=== PATIENT | female | born 2000 | race Caucasian/White ===

== ENCOUNTER 2021-05-17 08:51 | Outpatient (REF) | payer OTHER, SELFPAY ==
[2021-05-17 09:23] LABS: MANUAL DIFF FLAG NO
[2021-05-17 09:39] LABS: Basophils Percent Auto 0.2 % (0-2); Eosinophils Absolute Auto 0.1 X10*3/uL (0.0-0.4); Eosinophils Percent Auto 0.5 % (0-4); Hematocrit 48.1 % (37.0-47.0); Hemoglobin 16.2 g/dl (12.0-16.0); Imm Gran Abs Auto 0.09 X10*3/uL (0.00-0.03); Imm Gran Pct Auto 0.9 % (0.0-0.4); Lymphocytes Absolute Auto 1.4 X10*3/uL (1.2-4.9); Lymphocytes Percent Auto 14.4 % (20-40); Mean Corpuscular HGB Conc 33.7 g/dl (31.0-35.0); Mean Corpuscular Hemoglobin 28.9 pg (27.0-33.0); Mean Corpuscular Volume 85.9 fL (80.0-98.0); Mean Platelet Volume 9.4 fL (9.4-12.3); Monocytes Absolute Auto 0.6 X10*3/uL (0.1-1.2); Monocytes Percent Auto 5.7 % (2-11); Neutrophils Absolute Auto 7.5 x10*3/uL (2.0-8.3); Neutrophils Percent Auto 78.3 % (45-73); Platelet Count 333 X10*3/uL (160-400); Red Cell Distribution Width 12.1 % (11.0-16.0); White Blood Count 9.6 X10*3/uL (4.8-10.8)
[2021-05-17 10:07] LABS: Alanine Aminotransferase 22 U/L (0-31); Anion Gap 12 (12-20); Aspartate Amino Transferase 14 U/L (5-31); Blood Urea Nitrogen 12 mg/dL (9-16); Calcium 9.9 mg/dL (8.4-10.2); Carbon Dioxide 26 mmol/L (22-29); Chloride 104 mmol/L (96-108); Cholesterol 193 mg/dL; Estimated Glomerular Filt Rate > 60; Glucose Fasting 105 mg/dL (60-99); HDL Cholesterol 42 mg/dL; LDL Cholesterol Calculated 139 mg/dl; Potassium 4.7 mmol/L (3.3-5.1); Sodium 137 mmol/L (135-145); Triglycerides 62 mg/dL
[2021-05-17 10:17] LABS: UPreg QC Valid YES; Urine Pregnancy NEGATIVE (NEGATIVE)
[2021-05-17 10:21] LABS: TSH reflex Free T4 0.95 uIU/mL (0.32-4.0)
== END 2021-05-17 08:52 | disposition home or self-care (01) ==
LOC: HO.LAB 08:51
PROVIDERS: Absent Provider Podiatrist; PCP Internal Medicine; Visit Provider Internal Medicine
DX: Z00.01 Encounter for general adult medical examination with abnormal findings (principal); F41.8 Other specified anxiety disorders; G43.909 Migraine, unspecified, not intractable, without status migrainosus; J45.20 Mild intermittent asthma, uncomplicated; I10 Essential (primary) hypertension; Z83.49 Family history of other endocrine, nutritional and metabolic diseases; M20.11 Hallux valgus (acquired), right foot
CPT/HCPCS: 36415; 80048; 80061; 81025; 84443; 84450; 84460; 85025

== ENCOUNTER 2021-10-10 08:58 | Emergency (ER) | payer OTHER, MEDICAID, SELFPAY ==
--- NOTE | ~2021-10-10 | XR_ITS ---
EXAMINATION: XR WRIST, RIGHT CLINICAL INFORMATION: Right navicular pain status post fall. COMPARISON: None TECHNIQUE: PA, lateral, and oblique views of the right wrist. FINDINGS: The bones and soft tissues are normal. No fracture. Alignment is anatomic with normal joint spaces. No erosions or abnormal soft tissue calcifications. XR/XR wrist RT min 3V IMPRESSION: Unremarkable wrist. No evidence for scaphoid fracture.
[2021-10-10 09:07] VITALS: BP 118/70; PULSE 77; RESP 99; TEMP 35.9; O2SAT 16; BMI 21.1
--- NOTE | 2021-10-10 09:16 | ED_ITS ---
HPI - Extremity Problem General Chief complaint: Extremity Injury, Upper Stated complaint: R wrist inj Time Seen by Provider: 10/10/21 09:16 Source: patient Mode of arrival: ambulatory Limitations: no limitations History of Present Illness HPI Narrative: 21-year-old female presents with pain in her right wrist for the last week. Patient is right-handed and works at a bakery, and when she lifts heavy things, her right wrist is painful. No trauma, no repetitive movement. No numbness or tingling in her fingers. Patient has full range of motion. Patient has not tried ice or Tylenol or ibuprofen. MD Complaint: extremity pain Onset (ago): week(s) (1) Pain Consistency: constant Location: right Severity scale (1-10): 5 Quality: aching Radiation: none Relieving factors: nothing Exacerbating factors: nothing Associated symptoms: denies other symptoms Related Data Home Medications Medication Instructions Recorded Confirmed bupropion HCl 300 mg 24 hr tablet, 300 mg PO BEDTIME 02/28/21 05/21/21 extended release cholecalciferol (vitamin D3) 25 25 mcg PO DAILY 02/28/21 05/21/21 mcg (1,000 unit) capsule fluoxetine 20 mg tablet 40 mg PO QAM 02/28/21 05/21/21 propranolol 20 mg tablet 20 mg PO TID 02/28/21 05/21/21 rizatriptan 5 mg tablet See Rx Instructions PO .COMPLEX 02/28/21 05/21/21 clonazepam 1 mg tablet 1 mg PO TID PRN 05/21/21 05/21/21 Previous Rx's Medication Instructions Recorded nebulizers #1 ea 02/28/21 albuterol sulfate 90 mcg/actuation 2 puff INHALATION Q6H PRN #6.7 g 05/16/21 aerosol inhaler budesonide-formoterol HFA 160 1 puff INHALATION Q12H #10.2 g 05/21/21 mcg-4.5 mcg/actuation aerosol inhaler (Symbicort) inhalational spacing device #1 ea 05/21/21 (BreatheRite MDI Spacer) fluticasone 250 mcg-salmeterol 50 1 inh INHALATION BID #180 ea 06/05/21 mcg/dose blistr powdr for inhalation (Advair Diskus) albuterol sulfate 2.5 mg (3 mL) INHALATION QID PRN 09/12/21 #75 ml albuterol sulfate 90 mcg/actuation 2 puff INHALATION Q6H PRN #8.5 g 09/14/21 aerosol inhaler naproxen 500 mg tablet 500 mg PO BID 10 Days #20 tab 10/10/21 Allergies Allergy/AdvReac Type Severity Reaction Status Date / Time No Known Allergies Allergy Verified 05/21/21 10:47 [No Known Allergies*] Review of Systems Constitutional: Constitutional: Denies body ache(s), Denies chills, Denies fatigue, Denies fever(s), Denies headache(s), Denies malaise and Denies weakness Eyes: Eyes: Denies diplopia ENT: Denies vertigo, Denies dizziness, Denies headache(s) and Denies throat swelling Cardiovascular: Cardiovascular: Denies chest pain, Denies syncope, Denies leg edema, Denies lightheadedness, Denies Loss of Consciousness, Denies palpitations and Denies dyspnea Respiratory: Respiratory: Denies chest congestion, Denies cough and Denies dyspnea Gastrointestinal: Gastrointestinal: Denies abdominal pain, Denies hematochezia, Denies constipation, Denies diarrhea and Denies vomiting Musculoskeletal: Musculoskeletal: Denies deformity, Reports arthralgias, Denies limited range of motion, Denies numbness and Denies tingling Neurologic: Denies confusion, Denies vertigo, Denies dizziness, Denies syncope, Denies headache(s), Denies numbness, Denies tingling and Denies weakness Psychiatric: Psychiatric: Denies anxiety, Denies confusion and Denies depression Endocrine: Endocrine: Denies fatigue and Denies palpitations Allergic/Immunologic: Allergic/Immunologic: Denies throat swelling PMFSH Past Medical History Medical History ADHD (attention deficit hyperactivity disorder), inattentive type Depression with anxiety Family history of thyroid disease in mother Malrotation of intestine Migraine Mild intermittent asthma Family History Family History Maternal Aunt Bipolar 1 disorder Brother OCD (obsessive compulsive disorder) Mother Generalized anxiety disorder Hypothyroidism Social History Social History Housing: House Patient Tobacco Use Status: Never used Tobacco Advance Directives: No Advance Directives Information Provided: No Patient : No Current occupational status: employed and unemployed Physical Exam Vital Signs: Vital Signs: Last Vital Signs Temp 96.6 F L 10/10/21 09:07 Pulse 77 10/10/21 09:07 Resp 99 H 10/10/21 09:07 BP 118/70 10/10/21 09:07 Pulse Ox 16 L 10/10/21 09:07 BMI result Body Mass Index 21.1 Const: General: No confusion Nutritional Appearance: well nourished Orientation/consciousness: No confusion Limitations: no limitations Eyes: Conjunctivae: conjunctivae normal Pupils: Equal, round and reactive pupils present EOM: EOMs intact bilaterally Neck: Neck: Yes full ROM, Yes no lymphadenopathy and Yes supple Resp: Effort & Inspection: normal respiratory effort and able to speak in complete sentences Auscultation: clear to auscultation bilaterally, no crackles, no rales, no rhonchi and no wheezes Cardio: Rate: regular rate Rhythm: regular rhythm Heart sounds: S1 normal heart sound present and S2 normal heart sound present GI: Inspection: Yes normal to inspection Palpation (GI): Soft to palpation, nontender, no guarding and not rigid Percussion: Yes normal to percussion Auscultation: normal bowel sounds Skin: General skin exam: no rashes or lesions noted Neuro: General: No confusion Cranial nerves: Yes Equal, round and reactive pupils present Extrem: Right upper extremity: normal to inspection, full ROM, normal capillary refill, no joint enlargement and wrist Details: tenderness Location: of the distal radius, of the anatomic snuffbox and of the dorsal wrist, normal vascular exam, radial pulse present, normal Roldan's test and Tinel's negative; Negative for no swelling, ROM normal, no unusual warmth, no abrasions, no lacerations and no crepitus; No no edema Psych: Appearance: grossly normal Affect: normal affect Attitude: cooperative Thought process: Normal thought process present Course Course Course Narrative: 21-year-old female presents with right wrist pain for 1 week that is atraumatic. Patient is right-handed. On exam, patient has intact right upper extremity pulses, sensation, motor strength. Patient is tender in her anatomic snuffbox and distal radius. Reevaluation(s) Reevaluation #1: X-ray shows no evidence for scaphoid fracture. Normal XR Counseled rest, ice, compression, elevation. Ulnar gutter splint, f/u with Orth opedics,, naproxen. FINDINGS: The bones and soft tissues are normal. No fracture. Alignment is anatomic with normal joint spaces. No erosions or abnormal soft tissue calcifications.? XR/XR wrist RT min 3V IMPRESSION: Unremarkable wrist. No evidence for scaphoid fracture. Discharge Plan Discharge Clinical Impression: Acute wrist pain Patient Disposition: Home, Self-Care Instructions: R.I.C.E. Treatment (ED) Additional Instructions: Please take naproxen as prescribed. Call Ortho at [phone] for follow-up appointment. Take naproxen for the following 10 days. Rest, ice, leave the splint on until seen by orthopedics., and elevate your hand. Please return to emergency room for any new or concerning symptoms. I do not want you to work until you are seen and released by orthopedics Prescriptions: New naproxen 500 mg tablet 500 mg PO BID 10 Days Qty: 20 0RF No Action fluticasone propion-salmeterol [Advair Diskus] 250-50 mcg/dose blister with device 1 inh inhalation BID Qty: 180 3RF albuterol sulfate 2.5 mg /3 mL (0.083 %) solution for nebulization 2.5 mg inhalation QID PRN (Reason: shortness of breath or wheezing) Qty: 75 1RF albuterol sulfate 90 mcg/actuation HFA aerosol inhaler 2 puff inhalation Q6H PRN (Reason: wheezing) Qty: 8.5 2RF propranolol 20 mg tablet 20 mg PO TID 0RF fluoxetine 20 mg tablet 40 mg PO QAM 0RF bupropion HCl 300 mg tablet extended release 24 hr 300 mg PO BEDTIME 0RF rizatriptan 5 mg tablet See Rx Instructions PO .COMPLEX 0RF Rx Instructions: take 1 tablet at onset of headache; if no relief, may repeat 1 tablet after at least 2 hrs PO cholecalciferol (vitamin D3) 25 mcg (1,000 unit) capsule 25 mcg PO DAILY 0RF (DME) nebulizers Misc See Rx Instructions .Route Qty: 1 0RF Rx Instructions: As directed albuterol sulfate 90 mcg/actuation HFA aerosol inhaler 2 puff inhalation Q6H PRN (Reason: shortness of breath or wheezing) Qty: 6.7 0RF clonazepam 1 mg tablet 1 mg PO TID PRN0RF (DME) BreatheRite MDI Spacer Spacer See Rx Instructions .Route Qty: 1 0RF Rx Instructions: As directed budesonide-formoterol [Symbicort] 160-4.5 mcg/actuation HFA aerosol inhaler 1 puff inhalation Q12H Qty: 10.2 0RF Referrals: Hector Mitchell MD [Physician] - (right hand snuffbox tenderness) Stand Alone Forms: Work/School Release
[2021-10-10] MEDS: Ibuprofen 800 MG TABLET PO (10:22)
== END 2021-10-10 10:45 | disposition home or self-care (01) ==
PROVIDERS: Emergency Provider Emergency Medicine; PCP Internal Medicine
DX: M25.531 Pain in right wrist (principal); J45.20 Mild intermittent asthma, uncomplicated
CPT/HCPCS: 73110; 99283; 99284

== ENCOUNTER → 2021-10-23 14:16 | Outpatient (BNVA) | payer OTHER, MEDICAID, SELFPAY | PROVIDERS: PCP Internal Medicine; Visit Provider Physician Assistant | DX: Z13.89 Encounter for screening for other disorder (principal) ==

== ENCOUNTER 2022-07-01 09:13 | Outpatient (REF) | payer OTHER, SELFPAY ==
[2022-07-01 09:22] LABS: MANUAL DIFF FLAG NO
[2022-07-01 09:45] LABS: Basophils Percent Auto 0.5 % (0-2); Eosinophils Absolute Auto 0.2 X10*3/uL (0.0-0.4); Eosinophils Percent Auto 3.2 % (0-4); Hematocrit 43.1 % (37.0-47.0); Hemoglobin 14.4 g/dl (12.0-16.0); Imm Gran Abs Auto 0.02 X10*3/uL (0.00-0.03); Imm Gran Pct Auto 0.3 % (0.0-0.4); Lymphocytes Percent Auto 31.6 % (20-40); Mean Corpuscular HGB Conc 33.4 g/dl (31.0-35.0); Mean Corpuscular Hemoglobin 29.3 pg (27.0-33.0); Mean Corpuscular Volume 87.8 fL (80.0-98.0); Mean Platelet Volume 9.6 fL (9.4-12.3); Monocytes Absolute Auto 0.5 X10*3/uL (0.1-1.2); Monocytes Percent Auto 7.2 % (2-11); Neutrophils Absolute Auto 3.6 x10*3/uL (2.0-8.3); Neutrophils Percent Auto 57.2 % (45-73); Platelet Count 224 X10*3/uL (160-400); Red Blood Count 4.91 X10*6/uL (4.20-5.50); Red Cell Distribution Width 11.8 % (11.0-16.0); White Blood Count 6.2 X10*3/uL (4.8-10.8)
[2022-07-01 10:27] LABS: Alanine Aminotransferase 8 U/L (0-31); Anion Gap 11 (12-20); Aspartate Amino Transferase 12 U/L (5-31); Blood Urea Nitrogen 9 mg/dL (9-16); Calcium 9.2 mg/dL (8.4-10.2); Carbon Dioxide 28 mmol/L (22-29); Chloride 107 mmol/L (96-108); Cholesterol 173 mg/dL; Estimated Glomerular Filt Rate > 60; Glucose Fasting 85 mg/dL (60-99); HDL Cholesterol 48 mg/dL; LDL Cholesterol Calculated 113 mg/dl; Sodium 142 mmol/L (135-145); Triglycerides 62 mg/dL
[2022-07-01 10:44] LABS: TSH reflex Free T4 0.63 uIU/mL (0.32-4.0); Vitamin D 25-OH Total 12.7 ng/mL (>30)
== END 2022-07-01 09:14 | disposition home or self-care (01) ==
LOC: HO.LAB 09:13
PROVIDERS: PCP Internal Medicine; Visit Provider Internal Medicine
DX: Z00.00 Encounter for general adult medical examination without abnormal findings (principal); F41.8 Other specified anxiety disorders; F90.0 Attention-deficit hyperactivity disorder, predominantly inattentive type; J45.20 Mild intermittent asthma, uncomplicated; Z83.49 Family history of other endocrine, nutritional and metabolic diseases
CPT/HCPCS: 36415; 80048; 80061; 82306; 84443; 84450; 84460; 85025

== ENCOUNTER 2022-07-17 14:37 | Outpatient (REF) | payer OTHER, SELFPAY ==
--- NOTE | ~2022-07-17 | XR_ITS ---
EXAMINATION: XR WRIST, RIGHT CLINICAL INFORMATION: Sprain injury. COMPARISON: None TECHNIQUE: PA, lateral, and oblique views of the right wrist are submitted, together with a dedicated navicular view. FINDINGS: The bones and soft tissues are normal. No fracture. Alignment is anatomic with normal joint spaces. No erosions or abnormal soft tissue calcifications. XR/XR wrist RT min 3V IMPRESSION: Normal right wrist.
== END 2022-07-17 14:38 | disposition home or self-care (01) ==
LOC: HO.HMGCX 14:37
PROVIDERS: PCP Internal Medicine; Visit Provider Internal Medicine
DX: S63.501A Unspecified sprain of right wrist, initial encounter (principal)
CPT/HCPCS: 73110

== ENCOUNTER 2022-09-05 09:47 | Outpatient (AMB) | payer OTHER, SELFPAY ==
--- NOTE | 2022-09-05 09:49 | A.OFFPC_ITS ---
Vital Signs 09/05/22 09:50 Height 5 ft 3 in Weight 119 lb BMI 21.0 BP 100/70 Blood Pressure Location Lt brachial Position Sitting Pulse 99 Pulse Source Pulse Oximeter Pulse Oximetry (%) 99 Oxygen Delivery Method Room Air Intake Visit Reasons: Fatigue/Med Review Intake Note: Patient here because she has been sleeping all day, has been feeling very fatigued for about 1 week. Allergies No Known Allergies [No Known Allergies*] Allergy (Verified 09/11/23 08:54) Medication List - Last Reconciled 09/05/22 by Linda Ross MD albuterol sulfate 2.5 mg (3 mL) inhalation QID PRN albuterol sulfate 90 mcg/actuation 2 puffs inhalation Q6H PRN clonazepam 1 mg PO TID PRN fluoxetine 60 mg PO QAM fluticasone propion-salmeterol 250-50 mcg/dose (Advair Diskus) 1 inh inhalation BID inhalational spacing device (BreatheRite MDI Spacer) As directed nebulizers As directed propranolol 10 mg PO TID Tobacco use date assessed: 09/05/22 HPI Fatigue/Med Review HPI Details 23-year-old lady with mild intermittent asthma, history of vitamin-D deficiency and depression with anxiety, here today complaining of feeling more tired than usual. Denies any accompanying chest pain, no shortness of breath, no lightheadedness or syncopal attacks. Patient states appetite has been good, no problems with sleeping. PFSH Medical History Mild intermittent asthma Vitamin D deficiency Persistent asthma Witnessed seizure-like activity Family history of thyroid disease in mother 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), inattentive type Depression with anxiety Migraine Surgical History Hx of knee surgery Family History Maternal Aunt Bipolar 1 disorder Brother OCD (obsessive compulsive disorder) Mother Generalized anxiety disorder Hypothyroidism Mental health disorder Social History Housing: House Patient Tobacco Use Status: Never used Tobacco e-Cigarette/Vaping Use: Never Used service: No Current occupational status: employed Current occupation: bakery, rt hand Cognitive needs: No Hearing needs: No Vision needs: Yes Questionnaire Thrive Questionnaire Date Thrive assessed: 02/15/22 AUDIT C Alcohol Use Questionnaire (AUDIT-C) 1. How often do you have a drink containing alcohol?: Never 3. How often do you have six or more drinks on one occasion?: Never Total Score: 0 CINDY-7 AMB Questionnaire CINDY-7 Date CINDY - 7 assessed: 02/15/22 Source: Developed by Drs. Prasanth Sierra, Lizy Saenz, Justin Mehta and colleagues, with an educational pablo from [employer]. Review of Systems Const Reports no additional complaints Eyes Details: Has myopia, followed by Ophthalmology in [facility] every 2 year Reports requires corrective lenses ENT Reports no additional complaints Card Reports no additional complaints Resp Reports no additional complaints GI Reports no additional complaints, Denies change in bowel habits and Denies heartburn Details: Has IUD/Mirena inserted by [facility] OBGYN, gets occasional spotting Denies dysuria Musc Reports no additional complaints Skin/Breast Denies breast pain and Denies breast mass Neuro Reports no additional complaints Psych Details: Sees Dr. Caesar singh Reports no additional complaints Endo Reports no additional complaints Pierce/Lymph Reports no additional complaints Aller/Immun Reports no additional complaints Physical exam (Primary Care) Vital Signs: Last Vital Signs Pulse 99 09/05/22 09:50 BP 100/70 09/05/22 09:50 Pulse Ox 99 09/05/22 09:50 Oxygen Delivery Method Room Air 09/05/22 09:50 BMI result Body Mass Index 21.0 Tobacco/Smoking Status: Tobacco use Status Tobacco use date assessed 09/05/22 09/05/22 09:55 Patient Tobacco Use Status Never used Tobacco 09/05/22 09:55 e-Cigarette/Vaping Use Never Used 09/05/22 09:55 Thrive Assessment: Date of Thrive Assessment Date Thrive assessed 02/15/22 09/05/22 09:55 Results Reviewed Results Reviewed: Name: Anne Felton Age/Sex: 22/F : 2000 Unit#: [id number] Attend Dr: Linda Ross MD Re07/01/22 Status: DEP REF Location: HO.LAB Disch: SPEC : [id number] LEONARDO: 07/01/22 STATUS: COMP REQ : [id number] RECD: 07/01/[address]: Linda Ross MD COMP: 07/01/22 ENTERED: 07/01/22 [facility] DR: ORDERED: CBC Auto Diff Test Result Flag Reference WBC 6.2 4.8-10.8 X10*3/uL RBC 4.91 4.20-5.50 X10*6/uL HGB 14.4 12.0-16.0 g/dl HCT 43.1 37.0-47.0 % MCV 87.8 80.0-98.0 fL MCH 29.3 27.0-33.0 pg MCHC 33.4 31.0-35.0 g/dl RDW 11.8 11.0-16.0 % PLT 224 # 160-400 X10*3/uL MPV 9.6 9.4-12.3 fL Neut Pct Auto 57.2 45-73 % ImGran Pct Auto 0.3 0.0-0.4 % Lymp Pct Auto 31.6 20-40 % [place] Pct Auto 7.2 2-11 % Eos Pct Auto 3.2 0-4 % Baso Pct Auto 0.5 0-2 % NRBC Pct Auto 0.0 0.0-0.2 /100WBC ANC Neut Abs # 3.6 2.0-8.3 x10*3/uL ImGran Abs Auto 0.02 0.00-0.03 X10*3/uL Lymph Abs Auto 2.0 1.2-4.9 X10*3/uL [place] Abs Auto 0.5 0.1-1.2 X10*3/uL Eos Abs Auto 0.2 0.0-0.4 X10*3/uL Baso Abs Auto 0.0 0.0-0.2 X10*3/uL NRBC Abs Auto 0.000 0.0-0.012 X10*3/uL Name: Anne Felton Age/Sex: 22/F : 2000 Unit#: [id number] Attend Dr: Linda Ross MD Re07/01/22 Status: DEP REF Location: .LAB Disch: SPEC : [id number] LEONARDO: 07/01/22 STATUS: COMP REQ : [id number] RECD: 07/01/[address]: Linda Ross MD COMP: 07/01/22-1044 ENTERED: 07/01/[address]: ORDERED: Met Prof Fast, AST, ALT, Lipid Panel, Vitamin D 25-OH, TSH Rflx Test Result Flag Reference Sodium 142 135-145 mmol/L Potassium 4.0 3.3-5.1 mmol/L CL 107 96-108 mmol/L CO2 28 22-29 mmol/L Gap 11 L 12-20 BUN 9 9-16 mg/dL Creat 0.77 0.5-1.4 mg/dL EGFR > 60 NOTE: For -[place] individuals, multiply the result by 1.210. Chronic Kidney Disease: Estimated GFR < 60 mL/min/1.73m2 Severe Kidney Disease: Estimated GFR < 15 mL/min/1.73m2 FBS 85 60-99 mg/dL CA 9.2 # 8.4-10.2 mg/dL AST (GOT) 12 5-31 U/L ALT (GPT) 8 0-31 U/L Triglyceride 62 mg/dL Desirable Triglyceride: less than 150 mg/dL Borderline High Triglyceride 150-199 mg/dL High Triglyceride: 200-499 mg/dL Very High Triglyceride: greater than or equal to 5OO mg/dL Chol 173 mg/dL Desirable Cholesterol: less than 200 mg/dL Borderline High Cholesterol: 200-239 mg/dL High Cholesterol: greater than 239 mg/dL LDL Calculated 113 mg/dl Desirable LDL: less than 100 mg/dL Near Optimal/Above Optimal LDL: 110-129 mg/dL Borderline High LDL: 130-159 mg/dL High LDL: 160-189 mg/dL Very High LDL: greater than or equal to 190 mg/dL HDL 48 mg/dL Desirable HDL: greater than 40 mg/dL Note: This HDL assay may give artificially low results in patients with liver disease. Vit D 25-OH Tot 12.7 >30 ng/mL Health Based Reference Values* < 20 ng/mL Deficient 20-30 ng/mL Insufficient > 30 ng/mL Sufficient *Holick MF. N Engl J Med. 2007;357:266-280 Care must be taken in interpreting Vitamin D results from different laboratories and methodologies. Published data demonstrated that results from patients undergoing hemodialysis may show a negative bias when tested with various automated 25-OH vitamin D assays when compared to LC-MS/MS. When testing samples from patients whose predominant form of Vitamin D is Vitamin D2, such as patients receiving Vitamin D2 supplementation, results that are subtherapeutic should be confirmed with another method such as LC-MS/MS. TSH 0.63 0.32-4.0 uIU/mL Assessment and Plan Assessment & Plan (1) Vitamin D deficiency: Code(s): E55.9 - Vitamin D deficiency, unspecified (2) Fatigue: Code(s): R53.83 - Other fatigue Qualifiers: Fatigue type: unspecified Qualified Code(s): R53.83 - Other fatigue Plan Reviewed recent fasting labs showed normal CBC, normal electrolytes, fasting glucose, lipids, but it did show that she has vitamin-D deficiency. [place] [address] units per capsule to take once a week for the next 3 months. Medications: New cholecalciferol (vitamin D3) 1,250 mcg PO QWEEK 13 caps 0RF 3 months E55.9 - Vitamin D deficiency, unspecified Coding Level of Care Code Est Pt Level 3 (62057) Diagnoses Vitamin D deficiency E55.9 Fatigue, unspecified type R53.83 Fatigue type: unspecified
--- OUTSIDE RECORDS SUMMARY | 2022-09-05 09:49 | XMS_ITS | Continuity of Care Document ---
Author Name Unknown Organization [facility] Address [address], [address] [place] [id number]- Care Team Providers Care Phlebotomy Specialist Name Role Phone Coyd DAVIES, Linda Brooks Primary Care Physician Encounter [facility] Date(s): 07/09/22 - 08/08/22 [facility] [address], [address] [place] [id number] Allergies, Adverse Reactions, Alerts No Known Allergies Immunizations Given and Recorded Vaccine Date Status Refusal Reason influenza virus vaccine, inactivated 02/28/21 Johnny rded influenza virus vaccine, inactivated 03/03/18 Johnny rded influenza virus vaccine, inactivated 07/14/17 Johnny rded SARS-CoV-2 (COVID-19) Ad26 vaccine 11/10/20 Record ed meningococcal group B vaccine 04/06/20 Recorded meningococcal group B vaccine 05/07/17 Recorded tetanus/diphtheria/pertussis, acel(Tdap) 04/06/20 Recorded Meningococcal Conjugate Vaccine 05/07/17 Recorded Hepatitis A Pediatric Vaccine 05/07/17 Recorded Medications Advair Diskus 250 mcg-50 mcg inhalation powder INHALE 1 PUFF TWICE A DAY Start Date: 02/11/22 Status: Ordered BuPROPion IR 75 mg oral tablet 1 tablet = 75 mg, By Mouth, 2 times a day, # 60 tablet, 1 Refills, Maintenance, 02/23/22 15:41:00 EDT, Tablet, [facility], Partial fill upon patient request if the prescription is for aschedule II opioid drug., 160.02, cm, 02/23/22 4:40... Start Date: 02/23/22 Stop Date: 04/24/22 Status: Ordered clonazePAM 1 mg oral tablet TAKE 1 ORAL TABLET NEEDED EVERY 6 HOURS HOURS Start Date: 02/11/22 Status: Ordered FLUoxetine (Eqv-Prozac) 20 mg oral tablet TAKE 3 TABLETS BY MOUTH AT BEDTIME Start Date: 02/11/22 Status: Ordered ProAir HFA 90 mcg/inh inhalation aerosol with adapter TAKE 2 PUFFS INHALED EVERY 6 HOURS NEEDED FOR WHEEZING Start Date: 02/11/22 Status: Ordered propranolol 20 mg oral tablet 20 mg, 1, tablet, By Mouth, 3 times a day, TAKE 1 TABLET BY MOUTH THREE TIMES A DAY Start Date: 02/11/22 Status: Ordered Problem List Condition Confirmation Course Effective Dates Status H ealth Status Informant Abnormal loss of weight Confirmed Active Adrenal insufficiency Confirmed Active Anxiety Confirmed Active Asthma Confirmed Active Mood/Emotional disorder Confirmed Active Failure to thrive Confirmed Active Generalized paroxysmal EEG abnormality Confirmed Active History of panic attacks Confirmed Active Migraine without aura Confirmed Active Social History Social History Type Response Smoking Status Never smoker entered on: 09/05/14 Sex Patient Care team information Care Team Personnel Name: Cody DAVIES , Linda Brooks Position: Reference Physician Member Role: PCP Address: Address: [address] [place] [address]- Name: Shani DAVIES, Gilson Position: [facility] Psychiatry MD Member Role: [employer] Consulting Physician Address: Address: [address] [place] [id number]- Care Team Related Persons Name: EMILIO GARCIA Address: home [address] [place] [address] Name: GUS GARCIA Address: home [address] [address]
[2022-09-05 09:50] VITALS: BP 100/70; PULSE 99; O2SAT 99; BMI 21.0
== END 2022-09-05 10:55 | disposition home or self-care (01) ==
LOC: HO.HMGC 09:47
PROVIDERS: PCP Internal Medicine; Visit Provider Internal Medicine
DX: E55.9 Vitamin D deficiency, unspecified (principal); R53.83 Other fatigue
CPT/HCPCS: 99499

== ENCOUNTER 2023-02-28 10:24 | Outpatient (AMB) | payer OTHER, SELFPAY ==
--- NOTE | 2023-02-28 10:46 | MHC.OFFWIV ---
Intake Vital Signs 02/28/23 10:47 Weight 114 lb BP 112/64 Blood Pressure Location Lt brachial Position Sitting Pulse 95 Pulse Source Pulse Oximeter Pulse Oximetry (%) 99 Oxygen Delivery Method Room Air Intake Visit Reasons: EST/headaches Intake Note: Patient here for headaches that have been present for about 3 days and has nausea that follows. Patient Tobacco Use Status: Never used Tobacco Allergies No Known Allergies [No Known Allergies*] Allergy (Verified 02/28/23 10:49) Do you need a note to return to daycare/school/sports/work: Yes HPI HPI Comments History of Present Illness Details This is a who presents to the office today for sick visit. Patient complaining of intermittent headaches x3 days. Patient has a history of migraine headaches as well as unspecified seizure disorder, for which she is currently being worked up by Neurology. She states she started to develop intermittent headaches about 3 days ago. She denies any specific patterns or triggers though she does report mild photophobia. She reports associated nausea but no vomiting. She denies any facial asymmetry, slurred speech, numbness/weakness/paresthesia of extremities, visual disturbances, lightheadedness or dizziness, or specific aura. She denies any neck pain or stiffness. She denies any fevers or chills. She denies any recent head trauma or injury. Patient and her mother deny any seizure-like activity for the past 1 year. [facility] Medical History (Updated 09/05/22 @ 10:44 by Linda Ross MD) Vitamin D deficiency Persistent asthma Witnessed seizure-like activity Family history of thyroid disease in mother 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), inattentive type Depression with anxiety Migraine Surgical History Hx of knee surgery Family History Maternal Aunt Bipolar 1 disorder Brother OCD (obsessive compulsive disorder) Mother Generalized anxiety disorder Hypothyroidism Mental health disorder Social History Housing: House Patient Tobacco Use Status: Never used Tobacco e-Cigarette/Vaping Use: Never Used service: No Current occupational status: employed Current occupation: bakery, rt hand Cognitive needs: No Hearing needs: No Vision needs: Yes Review of Systems Const All systems reviewed & are unremarkable except as noted in HPI and below Reports no additional complaints Eyes Reports no additional complaints ENT Reports no additional complaints Card Reports no additional complaints Resp Reports no additional complaints GI Reports no additional complaints Reports no additional complaints Musc Reports no additional complaints Skin/Breast Reports system reviewed and no additional complaints, except as documented Neuro Reports no additional complaints and Denies Sensory deficit (Neuro) Psych Reports no additional complaints Endo Reports no additional complaints Pierce/Lymph Reports no additional complaints Aller/Immun Reports no additional complaints Physical Exam Vital Signs: Last Vital Signs Pulse 95 02/28/23 10:47 BP 112/64 02/28/23 10:47 Pulse Ox 99 02/28/23 10:47 Oxygen Delivery Method Room Air 02/28/23 10:47 Const General: cooperative, healthy appearing, no acute distress and well developed Orientation/consciousness: patient oriented x3 HEENT Head: Yes normal to inspection Ears: hearing grossly normal bilaterally General nose exam: Normal external nose present Face and sinus: Yes normal facial exam Mouth: Normal oral and palatal mucosa present Eyes General: appearance normal, both eyes and all related structures Pupils: Equal, round and reactive pupils present EOM: EOMs intact bilaterally Neck Neck: Yes no meningeal signs Resp Effort & Inspection: normal respiratory effort and no respiratory distress Auscultation: clear to auscultation bilaterally Cardio Rate: regular rate Rhythm: regular rhythm Heart sounds: no gallops, no murmurs and no rubs Peripheral pulses: Peripheral pulses 2+ throughout GI Inspection: No distended Palpation (GI): Soft to palpation and nontender Auscultation: normal bowel sounds Skin General skin exam: no rashes or lesions noted Neuro General: patient oriented x3, gait normal, Normal light touch and pain sensation, no meningeal signs, no focal motor deficits and deep tendon reflexes 2+ bilaterally Cranial nerves: Yes CN's II-XII intact bilaterally, Yes Facial sensation intact/muscles of mastication intact, Yes Intact sense of smell present, Yes Equal, round and reactive pupils present, Yes Normal accommodation reflex present, Yes Bilaterally intact EOM present, Yes Midline tongue present, Yes Ability to bilaterally rotate head present and Yes Ability to bilaterally elevate shoulders present Cognition (Neuro): normal cognition Speech: No Expressive aphasia present and No Receptive aphasia present Gait exam (Neuro): Normal gait present Motor exam (neuro): 5/5 motor strength present throughout Sensory Exam: No Sensory deficit (Neuro) Coordination: [id number] test normal and [id number]-[id number] test normal Extrem General: Yes normal to inspection, Yes full ROM and Yes no clubbing, cyanosis or edema Psych Appearance: grossly normal Mental Status: mental status grossly normal Assessment & Plan Assessment & Plan (1) Migraine: Code(s): G43.909 - Migraine, unspecified, not intractable, without status migrainosus Plan This is a 22-year-old female presenting to the office today complaining of intermittent headaches and 3 days. Patient does have a history of migraines as well as unspecified seizure disorder for which she is currently being worked up by neurology. Her history and physical exam are most consistent with an acute migraine headache; low suspicion for meningitis/encephalitis versus acute intracranial hemorrhage versus cerebrovascular accident. On physical examination, patient is neurologically intact with 5/5 strength in bilateral upper and lower extremities, no meningeal signs, cranial nerves 2-12 intact bilaterally, no ataxia with [id number] or rapid alternating movements bilaterally, sensation intact to face and extremities, no pronator drift, and PERRL/EOMI. Given patient's neurological history, I did mention the possibility of going to the emergency room for CT head but patient's mother states she has had a full neurological workup in the past several months, which has been negative thus far. Patient and her mother have not noticed any seizure-like activity for the past 1 year. For now, I will send PO sumatriptan 50 mg as needed for headache as well as PO ondansetron 4 mg every 8 hours as needed for nausea/vomiting. I have instructed the patient to follow up with her primary care physician or neurologist next week for further evaluation and management. Patient and her mother feel comfortable with this plan and they are comfortable with discharge home. They were instructed to proceed directly to the emergency room if she were to develop any neurological deficits or seizure like activity. They both verbalized their understanding and they are in agreement with the plan. COVID/flu/RSV also sent. Medications: New sumatriptan succinate take 1 tab at onset of headache; if no relief may repeat 1 tab after at least 2 hrs; max = 4 tabs/24 hr PO 10 tabs 0RF ondansetron 4 mg PO Q8H PRN 10 tabs 0RF nausea and vomiting Coding Level of Care Code Est Pt Level 3 (68775) Diagnoses Migraine G43.909
[2023-02-28 10:47] VITALS: BP 112/64; PULSE 95; O2SAT 99
== END 2023-02-28 11:55 | disposition home or self-care (01) ==
PROVIDERS: PCP Internal Medicine; Visit Provider Physician Assistant Medical
DX: G43.909 Migraine, unspecified, not intractable, without status migrainosus (principal)
CPT/HCPCS: 99213

== ENCOUNTER 2023-02-28 13:54 | Outpatient (REF) | payer OTHER, SELFPAY ==
[2023-02-28 14:39] LABS: Influenza A PCR NEGATIVE (Negative); Influenza B PCR NEGATIVE (Negative); Resp Syncy Virus RNA Qual PCR NEGATIVE (Negative); SARS COV2 PCR INHOUSE NEGATIVE (Negative)
== END 2023-02-28 13:55 | disposition home or self-care (01) ==
LOC: HO.HMGCLNP 13:54
PROVIDERS: Visit Provider Physician Assistant Medical
DX: Z20.822 Contact with and (suspected) exposure to COVID-19 (principal); R51.9 Headache, unspecified
CPT/HCPCS: 0241U

== ENCOUNTER 2023-05-22 08:11 | Outpatient (AMB) | payer OTHER, SELFPAY ==
[2023-05-22 08:36] VITALS: BP 106/62; PULSE 111; TEMP 36.7; O2SAT 99
--- NOTE | 2023-05-22 08:36 | AM.OFFWIN_ITS ---
Intake Vital Signs 05/22/23 08:36 Height 5 ft 3 in BP 106/62 Blood Pressure Location Rt brachial Position Sitting Pulse 111 H Pulse Source Pulse Oximeter Temp 98.1 F Temp Source Temporal Artery Scan Pulse Oximetry (%) 99 Oxygen Delivery Method Room Air Intake Visit Reasons: EP sinus pressure headache [id number] Patient Tobacco Use Status: Never used Tobacco Allergies No Known Allergies [No Known Allergies*] Allergy (Verified 05/22/23 08:37) Do you need a note to return to daycare/school/sports/work: No HPI EP sinus pressure headache [id number] HPI Details 23 [facility]. She reports a 3 day history of nasal congestion, head pressure, mild fatigue. Denies fever or chills. Has a mild dry cough. Denies exposure to sick contacts. Denies shortness of breath or GI symptoms. 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), inattentive type Depression with anxiety Migraine Surgical History Hx of knee surgery Family History Maternal Aunt Bipolar 1 disorder Brother OCD (obsessive compulsive disorder) Mother Generalized anxiety disorder Hypothyroidism Mental health disorder Social History Housing: House Patient Tobacco Use Status: Never used Tobacco e-Cigarette/Vaping Use: Never Used service: No Current occupational status: employed Current occupation: bakery, rt hand Cognitive needs: No Hearing needs: No Vision needs: Yes Review of Systems Const All systems reviewed & are unremarkable except as noted in HPI and below Physical Exam Vital Signs: Last Vital Signs Temp 98.1 F 05/22/23 08:36 Pulse 111 H 05/22/23 08:36 BP 106/62 05/22/23 08:36 Pulse Ox 99 05/22/23 08:36 Oxygen Delivery Method Room Air 05/22/23 08:36 Const General: cooperative, healthy appearing and no acute distress Nutritional Appearance: average body habitus HEENT Head: Yes normal to inspection and Yes normocephalic Ears: hearing grossly normal bilaterally General nose exam: Normal external nose present and Normal nares present Face and sinus: Yes normal facial exam and Yes Facial tenderness on exam of face and sinuses (mild frontal sinus pressure) Mouth: Normal oral and palatal mucosa present and moist mucous membranes Throat: Yes posterior oropharynx normal and Yes tonsils absent Neck Neck: Yes no lymphadenopathy Resp Effort & Inspection: normal respiratory effort and able to speak in complete sentences Auscultation: clear to auscultation bilaterally Cardio Jugular venous distension: no JVD Palpation: normal PMI Rate: regular rate Rhythm: regular rhythm Skin General skin exam: no rashes or lesions noted Extrem General: Yes capillary refill normal Psych Appearance: grossly normal Mental Status: mental status grossly normal Speech and movement: Normal speech and movement present Assessment & Plan Assessment & Plan (1) Viral upper respiratory illness: Code(s): J06.9 - Acute upper respiratory infection, unspecified Plan: Symptoms consistent with viral illness. Advised conservative measures and otc cold/flu medication for symptomatic treatment as needed. Advised to return to the clinic if she does not improve with time and conservative measures, or if symptoms worsen/new symptoms develop. Patient declines viral testing. Patient agrees to plan. Coding Level of Care Code Est Pt Level 3 (31999) Diagnoses Viral upper respiratory illness J06.9
== END 2023-05-22 09:10 | disposition home or self-care (01) ==
PROVIDERS: PCP Internal Medicine; Visit Provider Nurse Practitioner Family
DX: J06.9 Acute upper respiratory infection, unspecified (principal)
CPT/HCPCS: 99213

== ENCOUNTER 2023-06-12 11:21 | Outpatient (AMB) | payer OTHER, SELFPAY ==
--- NOTE | 2023-06-12 11:28 | MHC.PC.OV ---
Vital Signs 06/12/23 11:29 Height 5 ft 3 in Weight 122 lb 6 oz BMI 21.7 BP 100/72 Blood Pressure Location Lt brachial Position Sitting Pulse 107 H Pulse Source Pulse Oximeter Pulse Oximetry (%) 97 Oxygen Delivery Method Room Air Intake Visit Reasons: PE Intake Note: Pt is here for her Annual PE Is last menstrual period known: Yes Last menstrual period: 05/19/23 Allergies No Known Allergies [No Known Allergies*] Allergy (Verified 06/12/23 11:46) Medication List - Last Reconciled 06/12/23 by Linda Ross MD albuterol sulfate 2.5 mg (3 mL) inhalation QID PRN albuterol sulfate 90 mcg/actuation 2 puffs inhalation Q6H PRN budesonide-formoterol 160-4.5 mcg/actuation (Symbicort) 2 puffs inhalation Q12H cetirizine 10 mg PO DAILY cholecalciferol (vitamin D3) 1,250 mcg PO QWEEK 3 months clonidine HCl 0.1 mg PO DAILY fluoxetine 60 mg PO QAM inhalational spacing device (BreatheRite MDI Spacer) As directed levonorgestrel (Mirena) intrauterine nebulizers As directed prazosin 1 mg PO ONCE Tobacco use date assessed: 06/12/23 Dental Screening Dental Screen Date: 06/12/23 Did you have a dental visit in the last 12 months?: Yes Did you have a dental problem in the last 6 months where you did not have access to dental care?: No Was dental information given to patient?: Patient has dentist HPI PE HPI Details 23-year-old lady here today for physical exam. She in currently being seen at OBGYN at [facility] for her routine Pap and pelvic exam, had an IUD inserted in 2019, per patient and had a recent cervical cancer screening done this year which showed negative findings. She has been diagnosed to have bipolar 2 disorder, with depression with anxiety currently being seen at [facility] in counseling sees Dr. Caesar gaston. . Patient states that she was recently started on prazosin for frequent anxiety attacks, which has been helping . Has mild intermittent asthma currently stable and controlled on Symbicort, rarely needing to use her ProAir inhaler, but needs her prescription for her albuterol solution for her nebulizer. [facility] Medical History (Updated 06/12/23 @ 12:31 by Linda Ross MD) Mild intermittent asthma Vitamin D deficiency Persistent asthma Witnessed seizure-like activity Family history of thyroid disease in mother 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), inattentive type Depression with anxiety Migraine Surgical History Hx of knee surgery Family History Maternal Aunt Bipolar 1 disorder Brother OCD (obsessive compulsive disorder) Mother Generalized anxiety disorder Hypothyroidism Mental health disorder Social History Housing: House Patient Tobacco Use Status: Never used Tobacco e-Cigarette/Vaping Use: Never Used service: No Current occupational status: employed Current occupation: [employer] Cognitive needs: No Hearing needs: No Vision needs: Yes Female Reproductive History Menstrual Date of last menstrual period: 05/19/23 Questionnaire PHQ-9 Over the last 2 weeks, how often have you been bothered by any of the following problems? 1. Little interest or pleasure in doing things: not at all 2. Feeling down, depressed, or hopeless: not at all 3. Trouble falling or staying asleep, or sleeping too much: not at all 4. Feeling tired or having little energy: not at all 5. Poor appetite or overeating: not at all 6. Feeling bad about yourself - or that you are a failure or have let yourself or your family down: not at all 7. Trouble concentrating on things, such as reading the newspaper or watching television: not at all 8. Moving or speaking so slowly that other people could have noticed. Or the opposite - being so fidgety or restless that you have been moving around a lot more than usual: not at all 9. Thoughts that you would be better off or of hurting yourself in some way: not at all Total score: 0 Depression Screening Interpretation: Negative Depression Screening Done: Yes Source: Developed by Drs. Prasanth Sierra, Lizy Saenz, Justin Mehta and colleagues, with an educational pablo from [employer]. Thrive Questionnaire Date Thrive assessed: 06/12/23 I am a: Patient What is your living situation today?: I have a steady place to live Within the past 12 months, did the food you bought not last and you didn't have the money to get more?: Never true Within the past 12 months, did you worry whether your food would run out before you got money to buy more?: Never true Do you have trouble paying for medicines?: No Do you have trouble getting transportation to medical appointments?: No Do you have trouble paying your heating and electricity bill?: No Do you have trouble taking care of your child, family member or friend?: No Do you have trouble with day-to-day activities such as bathing, preparing meals, shopping, managing finances, etc.?: No Are you currently unemployed and looking for a job?: No Are you interested in more education?: No AUDIT C Alcohol Use Questionnaire (AUDIT-C) 1. How often do you have a drink containing alcohol?: Monthly or less 2. How many drinks containing alcohol do you have on a typical day when you are drinking?: 1 or 2 3. How often do you have six or more drinks on one occasion?: Never Total Score: 1 CINDY-7 AMB Questionnaire CINDY-7 Date CINDY - 7 assessed: 02/15/22 Feeling nervous, anxious, or on edge: 1 = Several days Not being able to stop or control worryin = Several days Worrying too much about different things: 1 = Several days Trouble relaxin = Several days Being so restless that it is hard to sit still: 0 = Not at all Becoming easily annoyed or irritable: 0 = Not at all Feeling afraid as if something awful might happen: 0 = Not at all Total CINDY-7 score (0-4 normal; 5-9 mild; 10-14 moderate; 15-21 severe): 4 Source: Developed by Drs. Prasanth Sierra, Lizy Saenz, Justin Mehta and colleagues, with an educational pablo from [employer]. CINDY-7 Assessment Billing CINDY-7 Assessment Tool: CINDY-7 Assessment 38646 ACT Questionnaire In the past 4 weeks, how much of the time did your asthma keep you from getting as much done at work, school or at home?: None of the time During the past 4 weeks, how often have you had shortness of breath?: Not at all During the past 4 weeks, how often did your asthma symptoms wake you up at night or earlier than usual in the morning?: Not at all During the past 4 weeks, how often have you had to use your rescue inhaler or nebulizer medication?: Once a week or less How would you rate your asthma control during the past 4 weeks?: Well controlled ACT Interpretation: Negative Score: 23 Review of Systems Const Reports no additional complaints and Reports weight gain Eyes Details: Has myopia, followed by Ophthalmology in [facility] every 2 year Reports requires corrective lenses ENT Reports no additional complaints Card Reports no additional complaints Resp Reports no additional complaints GI Reports no additional complaints, Denies change in bowel habits and Denies heartburn Details: Has IUD/Mirena inserted by [facility] OBGYN, gets occasional spotting Denies difficulty voiding, Denies genital pruritis, Denies genital lesions and Denies dysuria Musc Reports no additional complaints Skin/Breast Denies breast pain and Denies breast mass Neuro Reports no additional complaints Psych Details: Sees Dr. Caesar gaston Reports no additional complaints Endo Reports no additional complaints Pierce/Lymph Reports no additional complaints Aller/Immun Reports no additional complaints Physical exam (Primary Care) Vital Signs: Last Vital Signs Pulse 107 H 06/12/23 11:29 BP 100/72 06/12/23 11:29 Pulse Ox 97 06/12/23 11:29 Oxygen Delivery Method Room Air 06/12/23 11:29 BMI result Body Mass Index 21.7 Tobacco/Smoking Status: Tobacco use Status Tobacco use date assessed 06/12/23 06/12/23 11:43 Patient Tobacco Use Status Never used Tobacco 06/12/23 11:28 e-Cigarette/Vaping Use Never Used 06/12/23 11:28 Depression Screening Interpretation: Negative Thrive Assessment: Date of Thrive Assessment Date Thrive assessed 02/15/22 06/12/23 11:28 Const Other: Alert oriented x3, no acute distress noted ambulatory with normal gait, mom present in room Orientation/consciousness: patient oriented x3 [facility] Head: Yes normocephalic General nose exam: Normal external nose present and No nasal discharge present Face and sinus: Yes face symmetric Eyes General: appearance normal, both eyes and all related structures Neck Other: Supple, no lymphadenopathy palpated, thyroid gland nonpalpable Resp Effort & Inspection: normal respiratory effort and able to speak in complete sentences Auscultation: clear to auscultation bilaterally Cardio Other: S1 and S2 present, regular rate and rhythm GI Inspection: Yes normal to inspection Palpation (GI): Soft to palpation, nontender, no guarding and no masses Auscultation: normal bowel sounds Other: Sees [facility] for her routine Pap and pelvic exam, has an appointment already scheduled for next year General: Yes deferred Back/Spine/Pelvis Back: No back tenderness Skin General skin exam: dry skin Neuro General: patient oriented x3, gait normal, moves all extremities, Normal light touch and pain sensation, no focal motor deficits and CN's II-XI intact bilaterally Cranial nerves: Yes CN's II-XII intact bilaterally Cognition (Neuro): normal cognition Gait exam (Neuro): Normal gait present Extrem General: Yes full ROM, Yes no pedal edema, Yes no calf tenderness and Yes normal gait Psych Appearance: grossly normal and well kempt Mental Status: mental status grossly normal Speech and movement: Normal speech and movement present Affect: normal affect Attitude: cooperative Thought process: Normal thought process present Assessment and Plan Assessment & Plan (1) Vitamin D deficiency: Code(s): E55.9 - Vitamin D deficiency, unspecified Plan: Will check Vitamin-D level (2) Depression with anxiety: Comment: Currently being seen at [facility], sees Dr. Caesar Gaston Code(s): F41.8 - Other specified anxiety disorders Plan: Stable controlled present treatment per patient, currently followed by psychiatry (3) ADHD (attention deficit hyperactivity disorder), inattentive type: Comment: Followed at was at [facility], sees Dr. Caesar Gaston Code(s): F90.0 - Attention-deficit hyperactivity disorder, predominantly inattentive type Plan: Followed by psychiatry (4) Annual visit for general adult medical examination with abnormal findings: Code(s): Z00.01 - Encounter for general adult medical examination with abnormal findings Plan: Fasting labs ordered today advised to continue with regular dental visits every 6 months for cleaning, and get routine eye exams every 2 years. Stressed importance of following a healthy diet and getting regular exercise. Declined getting any vaccines at this time. Goes to [facility] for her routine Pap and pelvic exam. (5) Mild intermittent asthma: Comment: Goes to [facility] Pulmonary sees Dr. Ken Lewis Code(s): J45.20 - Mild intermittent asthma, uncomplicated Plan: Stable and controlled on budesonide-formoterol inhalation, rarely needing to use her albuterol inhaler, refill sent for her albuterol solution for her nebulizer Orders: Orders Glucose Fasting Today E55.9 - Vitamin D deficiency, unspecified, F41.8 - Other specified anxiety disorders, F90.0 - Attention-deficit hyperactivity disorder, predominantly inattentive type, G43.909 - Migraine, unspecified, not intractable, without status migrainosus, J45.20 - Mild intermittent asthma, uncomplicated, Z00.01 - Encounter for general adult medical examination with abnormal findings Lipid Panel Today E55.9 - Vitamin D deficiency, unspecified, F41.8 - Other specified anxiety disorders, F90.0 - Attention-deficit hyperactivity disorder, predominantly inattentive type, G43.909 - Migraine, unspecified, not intractable, without status migrainosus, J45.20 - Mild intermittent asthma, uncomplicated, Z00.01 - Encounter for general adult medical examination with abnormal findings Alanine Aminotransferase Today E55.9 - Vitamin D deficiency, unspecified, F41.8 - Other specified anxiety disorders, F90.0 - Attention-deficit hyperactivity disorder, predominantly inattentive type, G43.909 - Migraine, unspecified, not intractable, without status migrainosus, J45.20 - Mild intermittent asthma, uncomplicated, Z00.01 - Encounter for general adult medical examination with abnormal findings Aspartate Amino Transferase Today E55.9 - Vitamin D deficiency, unspecified, F41.8 - Other specified anxiety disorders, F90.0 - Attention-deficit hyperactivity disorder, predominantly inattentive type, G43.909 - Migraine, unspecified, not intractable, without status migrainosus, J45.20 - Mild intermittent asthma, uncomplicated, Z00.01 - Encounter for general adult medical examination with abnormal findings Vitamin D 25-OH Total Today E55.9 - Vitamin D deficiency, unspecified, F41.8 - Other specified anxiety disorders, F90.0 - Attention-deficit hyperactivity disorder, predominantly inattentive type, G43.909 - Migraine, unspecified, not intractable, without status migrainosus, J45.20 - Mild intermittent asthma, uncomplicated, Z00.01 - Encounter for general adult medical examination with abnormal findings Medications: New albuterol sulfate 2.5 mg (3 mL) inhalation Q6H PRN 75 mL 1RF shortness of breath or wheezing Refilled budesonide-formoterol 160-4.5 mcg/actuation (Symbicort) 2 puffs inhalation Q12H 10.2 grams 0RF Coding Level of Care Code Est Pt Prev Care 18-39y(08130) Diagnoses Vitamin D deficiency E55.9 Depression with anxiety F41.8 ADHD (attention deficit hyperactivity disorder), inattentive type F90.0 Annual visit for general adult medical examination with abnormal findings Z00.01 Mild intermittent asthma J45.20 Additional Codes CINDY-7 Assessment Billing - CINDY-7 Assessment Tool: CINDY-7 Assessment 49230 ([id number])
[2023-06-12 11:29] VITALS: BP 100/72; PULSE 107; O2SAT 97; BMI 21.7
== END 2023-06-12 13:48 | disposition home or self-care (01) ==
PROVIDERS: PCP Internal Medicine; Visit Provider Internal Medicine
DX: Z00.00 Encounter for general adult medical examination without abnormal findings (principal); E55.9 Vitamin D deficiency, unspecified; F41.8 Other specified anxiety disorders; F90.0 Attention-deficit hyperactivity disorder, predominantly inattentive type; J45.20 Mild intermittent asthma, uncomplicated; Z83.49 Family history of other endocrine, nutritional and metabolic diseases
CPT/HCPCS: 99395

== ENCOUNTER 2023-09-11 08:27 | Outpatient (AMB) | payer OTHER, SELFPAY ==
[2023-09-11 08:50] VITALS: BP 118/90; PULSE 136; TEMP 36.7; O2SAT 99; BMI 22.5
--- NOTE | 2023-09-11 08:50 | MHC.OFFWIV ---
Intake Vital Signs 09/11/23 08:50 Height 5 ft 3 in Weight 127 lb BMI 22.5 BP 118/90 H Blood Pressure Location Lt brachial Position Sitting Pulse 136 H Pulse Source Pulse Oximeter Temp 98.0 F Temp Source Temporal Artery Scan Pulse Oximetry (%) 99 Oxygen Delivery Method Room Air Intake Visit Reasons: EP Shaking, dizzy, heart racing Intake Note: pt is here today for shaking dizzy heart racing started 3 days ago Patient Tobacco Use Status: Never used Tobacco Allergies No Known Allergies [No Known Allergies*] Allergy (Verified 09/11/23 08:54) Do you need a note to return to daycare/school/sports/work: Yes HPI EP Shaking, dizzy, heart racing HPI Details This is a 23-year-old female patient who presents to the walk-in clinic today with her mother present. She reports a panic attack for the last 3 days, including shaking, dizziness, racing heart. Denies any other symptoms. History of asthma, however denies any respiratory symptoms. Has a history of anxiety and depression. Followed by psychiatrist at [facility]. On fluoxetine 60 mg, prazosin 1 mg daily, and clonidine 0.1mg p.r.n., which she took a half a tablet of this morning. States a full tablet makes her excessively drowsy. States she has been eating and drinking well. Denies any recent social/work stressors. [facility] Medical History Mild intermittent asthma Vitamin D deficiency Persistent asthma Witnessed seizure-like activity Family history of thyroid disease in mother 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), inattentive type Depression with anxiety Migraine Surgical History Hx of knee surgery Family History Maternal Aunt Bipolar 1 disorder Brother OCD (obsessive compulsive disorder) Mother Generalized anxiety disorder Hypothyroidism Mental health disorder Social History Housing: House Patient Tobacco Use Status: Never used Tobacco e-Cigarette/Vaping Use: Never Used service: No Current occupational status: employed Current occupation: [employer] Cognitive needs: No Hearing needs: No Vision needs: Yes Review of Systems Const All systems reviewed & are unremarkable except as noted in HPI and below Physical Exam Vital Signs: Last Vital Signs Temp 98.0 F 09/11/23 08:50 Pulse 136 H 09/11/23 08:50 BP 118/90 H 09/11/23 08:50 Pulse Ox 99 09/11/23 08:50 Oxygen Delivery Method Room Air 09/11/23 08:50 BMI result Body Mass Index 22.5 Const General: cooperative and anxious Orientation/consciousness: patient oriented x3 HEENT Head: Yes normal to inspection Resp Effort & Inspection: normal respiratory effort Auscultation: clear to auscultation bilaterally Cardio Palpation: normal PMI Rate: tachycardic Heart sounds: S1 normal heart sound present and S2 normal heart sound present Peripheral pulses: Peripheral pulses 2+ throughout Skin General skin exam: no rashes or lesions noted Neuro General: patient oriented x3 Extrem General: Yes capillary refill normal and Yes no clubbing, cyanosis or edema Psych Appearance: grossly normal Mental Status: mental status grossly normal Speech and movement: Normal speech and movement present Affect: Anxious affect present Attitude: cooperative Thought process: Normal thought process present Thought content: Normal thought content present Insight: Good insight present (Psych) Judgement: Good judgement present (Psych) Assessment & Plan Assessment & Plan (1) Tachycardia: Code(s): R00.0 - Tachycardia, unspecified Plan: EKG obtained in the office showed NSR 99. Patient was very reassured by EKG findings. She requests note for work as she has been out the past couple of days. This was provided to her. She has a f/u with psychiatrist within the next couple of weeks. I strongly encouraged patient to call for sooner appointment, if the symptoms persist throughout the next few days. I am going to start her on a p.r.n. hydroxyzine 25 mg to see if this provides her any benefit. We reviewed indications, use, possible side effects of this. If she develops any worsening symptoms, she should go to the emergency department for further evaluation and workup. She verbalizes understanding and agrees to plan. (2) Anxiety attack: Code(s): F41.0 - Panic disorder [episodic paroxysmal anxiety] Plan: As above. Orders: Orders AMB EKG-In Office Today R00.0 - Tachycardia, unspecified Medications: New hydroxyzine HCl Take up to twice a day as needed for anxiety. 25 mg PO BID PRN 14 tabs 0RF anxiety F41.0 - Panic disorder [episodic paroxysmal anxiety], R00.0 - Tachycardia, unspecified Coding Level of Care Code Est Pt Level 4 (66033) Diagnoses Tachycardia R00.0 Anxiety attack F41.0
== END 2023-09-11 09:57 | disposition home or self-care (01) ==
PROVIDERS: PCP Internal Medicine; Visit Provider Nurse Practitioner Family
DX: R00.0 Tachycardia, unspecified (principal); F41.0 Panic disorder [episodic paroxysmal anxiety]
CPT/HCPCS: 99214

== ENCOUNTER 2024-05-27 11:58 | Emergency (ER) | payer OTHER, SELFPAY ==
--- NOTE | 2024-05-27 | ECG_ITS ---
Test Reason : CHEST TIGHTNESS Blood Pressure : / mmHG Vent. Rate : 075 BPM Atrial Rate : 075 BPM P-R Int : 180 ms QRS Dur : 076 ms QT Int : 394 ms P-R-T Axes : 038 054 033 degrees QTc Int : 439 ms Normal sinus rhythm Normal ECG When compared with ECG of 12-MAY-2016 14:58, No significant change was found Referred By: Generic ED Physician Electronically Signed By:MANNY VILLALBA MD
--- NOTE | ~2024-05-27 | XR_ITS ---
EXAMINATION: XR CHEST CLINICAL INFORMATION: pain COMPARISON: None available. TECHNIQUE: 2 views of the chest were obtained. FINDINGS: No significant abnormality is noted involving the heart, lungs, mediastinum, bony thorax or soft tissues. XR/XR chest 2V IMPRESSION: Unremarkable examination. Electronically signed by: Sp Arita MD 05/27/2024 01:54 PM [facility]
--- NOTE | ~2024-05-27 | CT_ITS ---
EXAMINATION: CT ANGIOGRAM OF THE CHEST WITH AND WITHOUT CONTRAST (CT PULMONARY ANGIOGRAM FOR PE) CLINICAL INFORMATION: chest tightness COMPARISON: No pertinent prior studies are available for comparison. TECHNIQUE: Prior to contrast administration, noncontrast localization images were obtained. Subsequently, multidetector volumetric imaging was performed from the thoracic inlet to the pubic symphysis through the chest, abdomen, and pelvis following the administration of 65 mL Omnipaque 350 intravenous contrast. No contrast reaction reported Sagittal, coronal, and MIP oblique sagittal (through the chest only) reformatted images were obtained on the CT workstation, uploaded to PACS, and reviewed. This CT examination was performed using dose optimization techniques as appropriate, variously including the following: *Automated exposure control *Adjustment of mA and/or kV according to patient size (this includes techniques or standardized protocols for targeted exams where dose is matched to indication/reason for exam; i.e. extremities or head) *Use of iterative reconstruction technique Total exam dose-length product: 251 mGy-cm FINDINGS: QUALITY OF STUDY/CONTRAST BOLUS: Satisfactory. PULMONARY ARTERIES: No central or segmental pulmonary emboli. CORONARY ARTERY CALCIUM: None THORACIC AORTA: No aneurysm or dissection. LUNG: No focal consolidation, nodules or masses. There is moderate bronchial thickening PLEURA: No pleural effusion or pneumothorax. MEDIASTINUM: Normal heart size. No pericardial effusion. No hilar or mediastinal lymphadenopathy. No evidence of septal bowing or right heart strain. CHEST WALL/AXILLA: No axillary or internal mammary lymphadenopathy. OSSEOUS STRUCTURES: No acute or suspicious osseous abnormality. VISUALIZED ABDOMEN: No significant findings in the upper abdomen. CT/CT angio chest PE protocol IMPRESSION: 1. No evidence of pulmonary emboli. 2. Moderate bronchial thickening. VTE: negative. Fleischner guidelines were followed. Electronically signed by: Iam Park MD 05/27/2024 07:00 PM [facility]
[2024-05-27 12:08] VITALS: BP 118/78; BP 128/84; PULSE 78; PULSE 86; RESP 18; TEMP 36.8; O2SAT 97; BMI 20.2
--- NOTE | 2024-05-27 12:26 | ED_ITS ---
HPI - General Adult General Chief complaint: Dyspnea Stated complaint: SOB,CHEST TIGHTNESS X2H PER EMS Time Seen by Provider: 05/27/24 12:06 Source: patient, RN notes reviewed and old records reviewed Mode of arrival: EMS Limitations: no limitations History of Present Illness ED Provider: Hermelinda HPI narrative: 24-year-old female with past medical history significant for asthma, anxiety, depression, cardiac arrest 2 years ago presents for evaluation of shortness of breath with chest tightness. Patient reports that she was seated when she began to have a sudden onset of shortness a breath with midsternal chest tightness about 2 hours ago. She was not exerting herself with a time. She reports that her symptoms have improved from the onset Currently her symptoms are a 4/10. She reports using her inhaler with minimal improvement Denies any fevers, chills, cough. The patient is unsure of why she had a cardiac arrest 2 years ago. She reports having had a cardiac workup afterwards and was told everything was normal She was told that it is believed bupropion may have contributed to her cardiac arrest She is on a Mirena IUD Related Data Home Medications ?Medication ?Instructions ?Recorded ?Confirmed fluoxetine 60 mg tablet 60 mg PO QAM 07/17/22 06/12/23 clonidine HCl 0.1 mg tablet 0.1 mg PO DAILY 05/22/23 06/12/23 levonorgestrel 21 mcg/24 hr (up to intrauterine 06/12/23 06/12/23 8 years) 52 mg intrauterine device (Mirena) prazosin 1 mg capsule 1 mg PO ONCE 06/12/23 06/12/23 Previous Rx's ?Medication ?Instructions ?Recorded nebulizers #1 ea 02/28/21 inhalational spacing device #1 ea 05/21/21 (BreatheRite MDI Spacer) albuterol sulfate 2.5 mg/3 mL 2.5 mg (3 mL) inhalation QID PRN 03/13/22 (0.083 %) solution for nebulization shortness of breath or wheezing #75 mL cholecalciferol (vitamin D3) 1,250 1,250 mcg PO QWEEK 3 months #13 09/05/22 mcg (50,000 unit) capsule caps albuterol sulfate 2.5 mg/3 mL 2.5 mg (3 mL) inhalation Q6H PRN 06/12/23 (0.083 %) solution for nebulization shortness of breath or wheezing #75 mL budesonide-formoterol HFA 160 2 puff inhalation Q12H #10.2 grams 06/12/23 mcg-4.5 mcg/actuation aerosol inhaler (Symbicort) hydroxyzine HCl 25 mg tablet 25 mg PO BID PRN anxiety #14 tabs 09/11/23 albuterol sulfate 90 mcg/actuation 2 puff inhalation Q6H PRN wheezing 04/14/24 aerosol inhaler #8.5 grams azithromycin 250 mg tablet See Rx Instructions PO .COMPLEX #6 05/27/24 tabs prednisone 20 mg tablet 40 mg (2 x 20 mg) PO DAILY #10 tabs 05/27/24 Allergies Allergy/AdvReac Type Severity Reaction Status Date / Time No Known Allergies Allergy Verified 05/27/24 12:10 [No Known Allergies*] Review of Systems 2 Constitutional: Constitutional: Denies body ache(s), Denies chills and Denies fever(s) Eyes: Eyes: Denies blurry vision ENT: Denies vertigo and Denies dizziness Cardiovascular: Cardiovascular: Reports chest pain and Reports dyspnea Respiratory: Respiratory: Denies chest congestion, Denies cough and Reports dyspnea Gastrointestinal: Gastrointestinal: Denies abdominal pain, Denies nausea and Denies vomiting Musculoskeletal: Musculoskeletal: Denies back pain Integumentary/Breasts: Skin/Breast: Denies rash Neurologic: Denies vertigo and Denies dizziness Psychiatric: Psychiatric: Reports anxiety and Denies depression [facility] Past Medical History Medical History Mild intermittent asthma Vitamin D deficiency Persistent asthma Witnessed seizure-like activity Family history of thyroid disease in mother 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), inattentive type Depression with anxiety Migraine Surgical History Hx of knee surgery Family History Family History Maternal Aunt Bipolar 1 disorder Brother OCD (obsessive compulsive disorder) Mother Generalized anxiety disorder Hypothyroidism Mental health disorder Social History Social History Housing: House Patient Tobacco Use Status: Never used Tobacco e-Cigarette/Vaping Use: Never Used Advance Directives: No Advance Directives Information Provided: Yes service: No Current occupational status: employed Current occupation: bakery, rt hand Cognitive needs: No Hearing needs: No Vision needs: Yes Physical Exam ED Vital Signs: Vital Signs - 24 hr 05/27/24 12:08 05/27/24 13:22 05/27/24 14:28 Temperature 98.3 F Pulse Rate 78 84 74 Respiratory Rate 18 16 14 Blood Pressure 118/78 105/69 Pulse Oximetry 97 97 Oxygen Delivery Method Room Air Room Air 05/27/24 16:07 05/27/24 18:04 Temperature 98.2 F Pulse Rate 83 74 Respiratory Rate 15 19 Blood Pressure 105/66 Pulse Oximetry 99 97 Oxygen Delivery Method Room Air Room Air BMI result Body Mass Index 20.2 Const General: healthy appearing, comfortable, no acute distress, alert and awake Nutritional Appearance: well nourished Orientation/consciousness: patient oriented x3 HENMT Head: Yes normocephalic and Yes atraumatic Eyes Eyelids: Yes eyelids normal Conjunctivae: conjunctivae normal Sclerae: sclerae normal Corneas: corneas normal Pupils: Equal, round and reactive pupils present EOM: EOMs intact bilaterally Neck Neck: Yes full ROM Resp Effort & Inspection: normal respiratory effort, able to speak in complete sentences, no audible wheezes and not labored Auscultation: clear to auscultation bilaterally Cardio Rate: regular rate Rhythm: regular rhythm GI Inspection: No distended Palpation (GI): Soft to palpation, not firm, nontender, no guarding and not rigid Skin General skin exam: elasticity normal Neuro General: patient oriented x3 Cranial nerves: Yes Equal, round and reactive pupils present and Yes Bilaterally intact EOM present Cognition (Neuro): normal cognition Extrem Other: Moving all extremities well without any obvious deformities Medications Administered Discontinued Medications Generic Name Dose Route Start Last Admin Trade Name Freq PRN Reason Stop Dose Admin Albuterol/Ipratropium 3 ml 05/27/24 13:05 05/27/24 13:21 Albuterol/Iprat 2.5/0.5mg 3 Ml Ampul.Neb INHALE 05/27/24 13:06 3 ml ONCE ONE Administration Iohexol 100 ml 05/27/24 15:19 05/27/24 15:19 Iohexol 350 Mg/Ml 100 Ml Infus..Btl IV 05/27/24 15:20 65 ml ONCE ONE Administration Medical Decision Making Medical Decision Making [facility] Narrative: 24-year-old female with past medical history as documented above presents for evaluation of chest tightness and shortness of breath. She reports a history of cardiac arrest from similar episode in the past. She will therefore get a cardiac workup. Her EKG is normal sinus rhythm with a rate of 75 beats minute. Her QTC is normal at 439 milliseconds. She was on the section hand helper, plan for labs and observation. Differential Diagnosis Differential Diagnoses: The differential diagnosis associated with the presentation includes Cardiac arrhythmia ACS Chest tightness Anxiety Panic disorder Hyperthyroidism Lab Data [facility] Lab Attestation statement: I reviewed the patient's lab results. No leukocytosis or anemia. Normal platelet count. No electrolyte abnormalities. D-dimer elevated to 277 05/27/24 12:43 05/27/24 12:43 Labs: Lab Results 05/27/24 Range/Units 12:43 WBC 7.3 (4.8-10.8) X10*3/uL RBC 5.26 (4.20-5.50) X10*6/uL Hgb 14.8 (12.0-16.0) g/dl Hct 42.5 (37.0-47.0) % MCV 80.8 (80.0-98.0) fL MCH 28.1 (27.0-33.0) pg MCHC 34.8 (31.0-35.0) g/dl RDW 13.0 (11.0-16.0) % Plt Count 260 (160-400) X10*3/uL MPV 9.0 L (9.4-12.3) fL Immature Gran % (Auto) 0.3 (0.0-0.4) % Neut % (Auto) 65.0 (45-73) % Lymph % (Auto) 25.4 (20-40) % [place] % (Auto) 5.9 (2-11) % Eos % (Auto) 3.0 (0-4) % Baso % (Auto) 0.4 (0-2) % Lymph # (Auto) 1.9 (1.2-4.9) X10*3/uL [place] # (Auto) 0.4 (0.1-1.2) X10*3/uL Eos # (Auto) 0.2 (0.0-0.4) X10*3/uL Baso # (Auto) 0.0 (0.0-0.2) X10*3/uL Abs Immat Gran (auto) 0.02 (0.00-0.03) X10*3/uL Absolute Neuts (auto) 4.7 (2.0-8.3) x10*3/uL Absolute Nucleated RBC 0.000 (0.0-0.012) X10*3/uL Nucleated RBC % (auto) 0.0 (0.0-0.2) /100WBC PT 11.5 (10.9-12.4) SEC INR 1.0 (0.9-1.1) D-Dimer High Sensitivty 273 NG/ML Sodium 141 (135-145) mmol/L Potassium 4.1 (3.3-5.1) mmol/L Chloride 111 H (96-108) mmol/L Carbon Dioxide 25 (22-29) mmol/L Anion Gap 9 L (12-20) BUN 8 L (9-16) mg/dL Creatinine 0.83 (0.5-1.4) mg/dL Estim Creat Clear Calc 91.9 Estimated GFR > 60 Random Glucose 88 (60-115) mg/dL Calcium 9.5 (8.4-10.2) mg/dL Magnesium 1.9 (1.6-2.6) mg/dL Total Bilirubin 1.0 (0.0-1.0) mg/dL AST 16 (5-31) U/L ALT 16 (0-31) U/L Alkaline Phosphatase 62 (39-117) U/L Troponin I High Sens < 2.7 (<3.5-17.0) ng/L Total Protein 7.1 (6.5-8.0) g/dL Albumin 4.2 (3.5-5.0) g/dL Lipase 22 (8-78) U/L Beta HCG, Quant < 2 mIU/mL Urine Color Yellow Urine Appearance Clear Urine pH 7.0 (5.0-9.0) Ur Specific [place] <= 1.005 (1.005-1.025) Urine Protein Negative (Neg-Trace) mg/dL Urine Glucose (UA) Negative (Negative) mg/dL Urine Ketones Negative (Negative) mg/dL Urine Blood Negative (Negative) Urine Nitrite Negative (Negative) Ur Leukocyte Esterase Moderate (2+) H (Negative) Urine RBC 0-2 (0-2) /HPF Urine WBC 0-5 (0-5) /HPF Ur Squamous Epith Cells 0-2 (0-2) /HPF Urine Bacteria None Seen (None Seen) Hyaline Casts 0-2 (0-2) /LPF Independent Interpretation I performed an independent interpretation of an: EKG (as above) Radiology Impression Discussion of test interpretation with radiology: I have reviewed the radiologist's reading. Radiologist Impression: FINDINGS: QUALITY OF STUDY/CONTRAST BOLUS: Satisfactory. PULMONARY ARTERIES: No central or segmental pulmonary emboli. CORONARY ARTERY CALCIUM: None THORACIC AORTA: No aneurysm or dissection. LUNG: No focal consolidation, nodules or masses. There is moderate bronchial thickening PLEURA: No pleural effusion or pneumothorax. MEDIASTINUM: Normal heart size. No pericardial effusion. No hilar or mediastinal lymphadenopathy. No evidence of septal bowing or right heart strain. CHEST WALL/AXILLA: No axillary or internal mammary lymphadenopathy. OSSEOUS STRUCTURES: No acute or suspicious osseous abnormality. VISUALIZED ABDOMEN: No significant findings in the upper abdomen. IMPRESSION: 1. No evidence of pulmonary emboli. 2. Moderate bronchial thickening. VTE: negative. Fleischner guidelines were followed. Discharge Plan Discharge Clinical Impression: Chest tightness, Acute bronchitis Patient Disposition: Home, Self-Care Instructions: Acute Bronchitis (ED) Additional Instructions: Your CT scan did not show any evidence of blood clots. It does show bronchial wall thickening consistent with bronchitis. Given your history of asthma we will treat with azithromycin, prednisone, continue to use your inhalers as needed Prescriptions: New azithromycin 250 mg tablet See Rx Instructions .ROUTE .COMPLEX Qty: 6 0RF Rx Instructions: For 250 mg dose pack: take 500 mg today (day 1), then 250 mg for 4 days (days 2-5) prednisone 20 mg tablet 40 mg PO DAILY Qty: 10 0RF No Action albuterol sulfate 2.5 mg /3 mL (0.083 %) solution for nebulization 2.5 mg inhalation QID PRN (Reason: shortness of breath or wheezing) Qty: 75 1RF albuterol sulfate 90 mcg/actuation HFA aerosol inhaler 2 puff inhalation Q6H PRN (Reason: wheezing) Qty: 8.5 1RF (DME) nebulizers Misc See Rx Instructions .Route Qty: 1 0RF Rx Instructions: As directed (DME) BreatheRite MDI Spacer Spacer See Rx Instructions .Route Qty: 1 0RF Rx Instructions: As directed budesonide-formoterol [Symbicort] 160-4.5 mcg/actuation HFA aerosol inhaler 2 puff inhalation Q12H Qty: 10.2 0RF Mirena 21 mcg/24 hours (8 yrs) 52 mg intrauterine device intrauterine prazosin 1 mg capsule 1 mg PO ONCE albuterol sulfate 2.5 mg /3 mL (0.083 %) solution for nebulization 2.5 mg inhalation Q6H PRN (Reason: shortness of breath or wheezing) Qty: 75 1RF cholecalciferol (vitamin D3) 1,250 mcg (50,000 unit) capsule 1,250 mcg PO QWEEK 90 Days Qty: 13 0RF clonidine HCl 0.1 mg tablet 0.1 mg PO DAILY hydroxyzine HCl 25 mg tablet 25 mg PO BID PRN (Reason: anxiety) Qty: 14 0RF Rx Instructions: Take up to twice a day as needed for anxiety. fluoxetine 60 mg tablet 60 mg PO QAM Print Language: Faroese
--- OUTSIDE RECORDS SUMMARY | 2024-05-27 12:41 | XMS_ITS | Patient Health Record ---
Author Organization [facility] Marc ai Kwong Address [address] [place] [address] Care Team Providers Care Crime Analyst Name Role Phone Cody DAVIES, Linda Haley Primary Care Provider Un available Veronica Stone Unavailable [phone] Reason For Referral No Information Medications Medication SIG (Take, Route, Frequency, Duration) Notes Start Date End Date Status clonazePAM 0.5 MG Orally No t-Taking Symbicort 80-4.5 MCG/ACT 2 puffs Inhalation Active Sertraline HCl Activ e busPIRone HCl 5 MG 1 tablet Orally Twic e a day Active Albuterol Active Social History Tobacco Use: Social History Observation Description Date Details (start date - stop date) Never Smoker NA - NA Tobacco Use/Smoking Question Answer Notes Are you a: nonsmoker Additional Findings: Tobacco Non-User Current no n-smoker Alcohol Screen Question Answer Notes Did you have a drink containing alcohol in the p ast year? No Points 0 Interpretation Negative Tobacco use other than smoking: Question Answer Notes Are you an other tobacco user? 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) Active confirmed Plan Of Treatment Pending Test Test Name Order Date X ray : Foot, left 3V 11/30/2018 X ray : Foot, right 3V 02/04/2020 X ray : Foot, right 3V 11/30/2018 Insurance Providers Payer Name Payer Address Payer Phone Subscriber Number Group Number Insured Name Patient Relationship to Insured Coverage Start Date Coverage End Date [address] [place] [phone] [id number] Jermaine Felton Child - Insured does not have Financial Responsibility (includes legally adopted child) Medical (General) History Medical History History ICD Code Anxiety asthma Depression Headaches Heart murmur Surgical History Surgery Date(Month/Year) Malrotated bowel 1999
--- OUTSIDE RECORDS SUMMARY | 2024-05-27 12:41 | XMS_ITS | Patient Health Record ---
Author Organization [facility] Address [address] [place] [address] Care Team Providers Care Receiver Stocker Name Role Phone Linda Ross Primary Care Provider Unavailab le ALLERGIES No Known Allergies REASON FOR REFERRAL No Information MEDICATIONS Medication SIG (Take, Route, Frequency, Duration) Notes Start Date End Date Status FLUoxetine HCl 20 MG 1 capsule Orally On ce a day Active buPROPion HCl ER (XL) 150 MG 1 tablet in the morning Orally Once a day Active Propranolol HCl 20 MG/5ML 5 ml Orally Once a day Active buPROPion HCl ER (XL) 300 MG 1 tablet in the morning Orally Once a day Active clonazePAM 1 MG 1 tablet Orally Once a day Active Albuterol Sulfate (2.5 MG/3ML) 0.083% 3 ml as needed Inhalation every 6 hrs Active PROBLEMS Problem Type ICD Code Onset Dates Problem Status W/U Status Risk SNOMED Code Notes Problem Hallux valgus of right foot (M20.11) Active confirmed [id number] PLAN OF TREATMENT Pending Test Test Name Order Date X ray : Foot, right 3v 04/26/2021 Insurance Providers Payer Name Payer Address Payer Phone Subscriber Number Group Number Insured Name Patient Relationship to Insured Coverage Start Date Coverage End Date [employer] [address] [place] [phone] [id number] Anne Felton Self - patient is the insured MEDICAL (GENERAL) HISTORY Medical History History ICD Code ADHA Anxiety Depression Family history of thyriod disease Malrotation of intestion Migraine Mild intermittent asthma
[2024-05-27 12:47] LABS: MANUAL DIFF FLAG NO
[2024-05-27 12:50] LABS: Basophils Percent Auto 0.4 % (0-2); Eosinophils Absolute Auto 0.2 X10*3/uL (0.0-0.4); Hematocrit 42.5 % (37.0-47.0); Hemoglobin 14.8 g/dl (12.0-16.0); Imm Gran Abs Auto 0.02 X10*3/uL (0.00-0.03); Imm Gran Pct Auto 0.3 % (0.0-0.4); Lymphocytes Absolute Auto 1.9 X10*3/uL (1.2-4.9); Lymphocytes Percent Auto 25.4 % (20-40); Mean Corpuscular HGB Conc 34.8 g/dl (31.0-35.0); Mean Corpuscular Hemoglobin 28.1 pg (27.0-33.0); Mean Corpuscular Volume 80.8 fL (80.0-98.0); Monocytes Absolute Auto 0.4 X10*3/uL (0.1-1.2); Monocytes Percent Auto 5.9 % (2-11); Neutrophils Absolute Auto 4.7 x10*3/uL (2.0-8.3); Platelet Count 260 X10*3/uL (160-400); Red Blood Count 5.26 X10*6/uL (4.20-5.50); White Blood Count 7.3 X10*3/uL (4.8-10.8)
[2024-05-27 12:52] LABS: Appearance Urine Clear; Color Urine Yellow; Glucose Urine UA Negative (Negative); Leukocyte Esterase Urine Moderate (2+) (Negative); Nitrite Urine Negative (Negative); Specific Gravity - Urine <= 1.005 (1.005-1.025); UMIC TRIGGER UACC YES; Urine Blood Negative (Negative); Urine Ketones Negative (Negative); Urine Protein Negative (Neg-Trace)
[2024-05-27 12:56] LABS: Prothrombin Time 11.5 SEC (10.9-12.4)
[2024-05-27 12:58] LABS: D Dimer High Sensitivity 273 NG/ML
[2024-05-27 12:59] LABS: Bacteria Urine None Seen (None Seen); Hyaline Casts Urine 0-2 /LPF (0-2); RBC Urine 0-2 /HPF (0-2); Squamous Epithelial Cell Urine 0-2 /HPF (0-2); UACC Culture Trigger YES; WBC Urine 0-5 /HPF (0-5)
[2024-05-27 13:08] LABS: Alanine Aminotransferase 16 U/L (0-31); Albumin Level 4.2 g/dL (3.5-5.0); Alkaline Phosphatase 62 U/L (39-117); Anion Gap 9 (12-20); Aspartate Amino Transferase 16 U/L (5-31); Blood Urea Nitrogen 8 mg/dL (9-16); Calcium 9.5 mg/dL (8.4-10.2); Carbon Dioxide 25 mmol/L (22-29); Chloride 111 mmol/L (96-108); Creatinine Clr Calc Pharmacy 91.9; Estimated Glomerular Filt Rate > 60; Glucose Random 88 mg/dL (60-115); Lipase 22 U/L (8-78); Magnesium 1.9 mg/dL (1.6-2.6); Potassium 4.1 mmol/L (3.3-5.1); Sodium 141 mmol/L (135-145); Total Protein 7.1 g/dL (6.5-8.0)
[2024-05-27 13:11] LABS: HCG Quantitative < 2 mIU/mL; Troponin-I High Sensitivity < 2.7 ng/L (<3.5-17.0)
[2024-05-27] MEDS: Albuterol/Iprat 2.5/0.5MG 3 ML AMPUL.NEB INHALE (13:21)
[2024-05-27 13:22] VITALS: PULSE 84; RESP 16; O2SAT 98
[2024-05-27 14:28] VITALS: BP 105/69; PULSE 74; RESP 14; O2SAT 97
--- NOTE | 2024-05-27 14:46 | PC.NURSE ---
This RN called to bedside by mom to repor that pateint started to have numbing sensation throughout body, she went pale and diaphoretic. This RN looked back on tele monitor and her HR went down to 50s, with questionable rhythm changes. No further orders placed at this time
[2024-05-27] MEDS: iohexoL 350 MG/ML 100 ML INFUS..BTL IV (15:19)
[2024-05-27 16:07] VITALS: PULSE 83; RESP 15; O2SAT 99
[2024-05-27 18:04] VITALS: BP 105/66; PULSE 74; RESP 19; TEMP 36.8; O2SAT 97
[2024-05-27 19:57] VITALS: BP 105/66; PULSE 74; RESP 19; TEMP 36.8; O2SAT 97
== END 2024-05-27 19:58 | disposition home or self-care (01) ==
PROVIDERS: Physician Assistant; Emergency Provider Student in an Organized Health Care Education/Training Program; PCP Internal Medicine
DX: J20.9 Acute bronchitis, unspecified (principal); R07.9 Chest pain, unspecified; R06.02 Shortness of breath; J45.909 Unspecified asthma, uncomplicated
CPT/HCPCS: 36415; 71046; 71275; 80053; 81001; 83690; 83735; 84484; 84702; 85025; 85379; 85610; 87086; 93005; 94640; 99284; 99285; Q9967

== ENCOUNTER → 2024-05-27 12:09 | Outpatient (BNV) | payer OTHER, SELFPAY | PROVIDERS: Emergency Provider Student in an Organized Health Care Education/Training Program; PCP Internal Medicine; Visit Provider Internal Medicine Cardiovascular Disease | DX: R07.9 Chest pain, unspecified (principal); R06.02 Shortness of breath | CPT/HCPCS: 93010 ==

== ENCOUNTER 2024-07-06 08:56 | Outpatient (AMB) | payer OTHER, SELFPAY ==
[2024-07-06 09:18] VITALS: BP 90/60; PULSE 69; O2SAT 99; BMI 24.8
--- NOTE | 2024-07-06 09:18 | A.OFFPC_ITS ---
Vital Signs 07/06/24 09:18 Height 5 ft 3 in Weight 140 lb BMI 24.8 BP 90/60 Blood Pressure Location Lt brachial Position Sitting Pulse 69 Pulse Source Pulse Oximeter Pulse Oximetry (%) 99 Oxygen Delivery Method Room Air Intake Visit Reasons: Annual PE Allergies enviromental Adverse Reaction (Uncoded 07/06/24 09:52) sneezing Medication List - Last Reconciled 07/06/24 by Linda Ross MD albuterol sulfate 2.5 mg (3 mL) inhalation Q6H PRN albuterol sulfate 90 mcg/actuation 2 puffs inhalation Q6H PRN budesonide-formoterol 160-4.5 mcg/actuation (Symbicort) 2 puffs inhalation Q12H fluoxetine 60 mg PO QAM hydroxyzine HCl 50 mg PO BEDTIME inhalational spacing device (BreatheRite MDI Spacer) As directed levonorgestrel (Mirena) intrauterine nebulizers As directed propranolol 40 mg PO ONCE Tobacco use date assessed: 07/06/24 Dental Screening Dental Screen Date: 07/06/24 Did you have a dental visit in the last 12 months?: Yes Did you have a dental problem in the last 6 months where you did not have access to dental care?: Yes Was dental information given to patient?: Patient has dentist HPI Annual PE HPI Details - The patient is a 24-year-old female pr esenting today for her physical exam and follow-up - Asthma is managed with Symbicort and a lbuterol, with inhaler use infrequent for symptom relief. - Reports history of vaccination for inf luenza three years ago during travel plans, does not receive vaccines regularly otherwise, declines recommendation to get flu and pneumococcal vaccine on this visit.. - Myopia managed with eyeglasses, allerg ic rhinitis symptoms managed with [id number] antihistamines - Eustachian tube dysfunction noted in p ast, leading to ear scarring. - Comprehensive blood work in May evealed normal hematologic and metabolic profiles. - Family history of breast cancer was no ruperto although no personal diagnosis. - ADHD was diagnosed previously, but obt aining relevant documentation is pending. Currently followed by Caesar Gaston for her depression and anxiety, stable and controlled on present treatment - Uses IUD for contraception , has irreg ular menses, spotting. [facility] Medical History (Updated 07/06/24 @ 10:11 by Linda Ross MD) Refused pneumococcal vaccination Refused influenza vaccine Mild intermittent asthma Vitamin D deficiency Persistent asthma Witnessed seizure-like activity Family history of thyroid disease in mother 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), inattentive type Depression with anxiety Migraine Surgical History Hx of knee surgery Family History Maternal Aunt Bipolar 1 disorder Brother OCD (obsessive compulsive disorder) Mother Generalized anxiety disorder Hypothyroidism Mental health disorder Social History Housing: House Patient Tobacco Use Status: Never used Tobacco e-Cigarette/Vaping Use: Never Used service: No Current occupational status: employed Current occupation: Geogoer, [employer] Cognitive needs: No Hearing needs: No Vision needs: Yes Questionnaire PHQ-9 Over the last 2 weeks, how often have you been bothered by any of the following problems? 1. Little interest or pleasure in doing things: not at all 2. Feeling down, depressed, or hopeless: not at all 3. Trouble falling or staying asleep, or sleeping too much: not at all 4. Feeling tired or having little energy: not at all 5. Poor appetite or overeating: not at all 6. Feeling bad about yourself - or that you are a failure or have let yourself or your family down: not at all 7. Trouble concentrating on things, such as reading the newspaper or watching television: not at all 8. Moving or speaking so slowly that other people could have noticed. Or the opposite - being so fidgety or restless that you have been moving around a lot more than usual: not at all 9. Thoughts that you would be better off or of hurting yourself in some way: not at all Total score: 0 Depression Screening Interpretation: Positive (Controlled on present treatment, followed by Caesar Gaston) Depression Screening Follow-up: Existing condition, In treatment and Community Mental Health Worker F/U Depression Screening Done: Yes 95818 - PHQ-9 Billing: Yes Source: Developed by Drs. Prasanth Sierra, Lizy B.WJustin Valdez and colleagues, with an educational pablo from [employer]. Thrive Questionnaire Date Thrive assessed: 07/06/24 I am a: Patient What is your living situation today?: I have a steady place to live Within the past 12 months, did the food you bought not last and you didn't have the money to get more?: Never true Within the past 12 months, did you worry whether your food would run out before you got money to buy more?: Never true Do you have trouble paying for medicines?: No Do you have trouble getting transportation to medical appointments?: No Do you have trouble paying your heating and electricity bill?: No Do you have trouble taking care of your child, family member or friend?: No Do you have trouble with day-to-day activities such as bathing, preparing meals, shopping, managing finances, etc.?: No Are you currently unemployed and looking for a job?: No Are you interested in more education?: No Please select the resources that you would like help with: None Currently or been in a relationship where the following occur: No concerns reported THRIVE Score: 0 AUDIT C Alcohol Use Questionnaire (AUDIT-C) 1. How often do you have a drink containing alcohol?: Monthly or less 2. How many drinks containing alcohol do you have on a typical day when you are drinking?: 1 or 2 3. How often do you have six or more drinks on one occasion?: Never Total Score: 1 CINDY-7 AMB Questionnaire CINDY-7 Date CINDY - 7 assessed: 07/06/24 Feeling nervous, anxious, or on edge: 1 = Several days Not being able to stop or control worryin = Several days Worrying too much about different things: 1 = Several days Trouble relaxin = Not at all Being so restless that it is hard to sit still: 1 = Several days Becoming easily annoyed or irritable: 0 = Not at all Feeling afraid as if something awful might happen: 0 = Not at all Total CINDY-7 score (0-4 normal; 5-9 mild; 10-14 moderate; 15-21 severe): 4 Source: Developed by Drs. Prasanth Sierra, Justin Hallman and colleagues, with an educational pablo from [employer]. CINDY-7 Assessment Billing CINDY-7 Assessment Tool: CINDY-7 Assessment 52183 Review of Systems Const Reports no additional complaints Eyes Details: [facility] , has myopia Reports requires corrective lenses ENT Details: gets regular dental prophylaxis q 6 months Reports no additional complaints Card Reports no additional complaints Resp Reports no additional complaints GI Reports no additional complaints, Denies change in bowel habits and Denies he artburn Details: UTD with pap / pelvic exam , sees [facility] , has Mirena IUD Denies difficulty voiding, Denies genital pruritis, Denies genital lesions and Denies dysuria Musc Reports no additional complaints Skin/Breast Denies breast pain and Denies breast mass Neuro Reports no additional complaints Psych Details: Sees Dr. Caesar gaston Reports no additional complaints Endo Reports no additional complaints Pierce/Lymph Reports no additional complaints Aller/Immun Reports no additional complaints Physical exam (Primary Care) Vital Signs: Last Vital Signs Pulse 69 07/06/24 09:18 BP 90/60 07/06/24 09:18 Pulse Ox 99 07/06/24 09:18 Oxygen Delivery Method Room Air 07/06/24 09:18 BMI result Body Mass Index 24.8 Tobacco/Smoking Status: Tobacco use Status Tobacco use date assessed 07/06/24 07/06/24 09:27 Patient Tobacco Use Status Never used Tobacco 07/06/24 09:27 e-Cigarette/Vaping Use Never Used 07/06/24 09:27 PHQ-9: PHQ-9 Score PHQ-9: Total score 0 07/07/24 00:01 Depression Screening Interpretation: Positive (Controlled on present treatment, followed by Caesar Gaston) Depression Screening Follow-up: Existing condition, In treatment and Community Mental Health Worker F/U Thrive Assessment: Date of Thrive Assessment Date Thrive assessed 07/06/24 07/06/24 09:27 Currently or been in a relationship where the following occur: No concerns reported Advance Care Planning discussion: Completed/Scanned Date of discussion: 07/06/24 Who was present: pt and mother Forms completed: Health Care Proxy Time spent: 16-45 minutes Actual minutes spent: 2 Const Other: Alert oriented x3, no acute distress noted ambulatory with normal gait, mom present in room Orientation/consciousness: patient oriented x3 HENMT Head: Yes normocephalic General nose exam: Normal external nose present and No nasal discharge present Face and sinus: Yes face symmetric Eyes General: appearance normal, both eyes and all related structures Neck Other: Supple, no lymphadenopathy palpated, thyroid gland nonpalpable Resp Effort & Inspection: normal respiratory effort and able to speak in complete sentences Auscultation: clear to auscultation bilaterally Cardio Other: S1 and S2 present, regular rate and rhythm GI Inspection: Yes normal to inspection Palpation (GI): Soft to palpation, nontender, no guarding and no masses Auscultation: normal bowel sounds Other: Sees [facility] for her routine Pap and pelvic exam, has an appointment already scheduled for next year General: Yes deferred Back/Spine/Pelvis Back: No back tenderness Skin General skin exam: dry skin Neuro General: patient oriented x3, gait normal, moves all extremities, Normal light touch and pain sensation, no focal motor deficits and CN's II-XI intact bilaterally Cranial nerves: Yes CN's II-XII intact bilaterally Cognition (Neuro): normal cognition Gait exam (Neuro): Normal gait present Extrem General: Yes full ROM, Yes no pedal edema, Yes no calf tenderness and Yes normal gait Psych Appearance: grossly normal and well kempt Mental Status: mental status grossly normal Speech and movement: Normal speech and movement present Affect: normal affect Attitude: cooperative Thought process: Normal thought process present Results Reviewed Results Reviewed: Name: Anne Felton Age/Sex: 24/F : 2000 Unit#: [id number] Attend Dr: Ry Walton DO Re05/27/24 Status: DEP ER Location: .ED Disch: SPEC : [id number] LEONARDO: 05/27/24 STATUS: COMP REQ : [id number] RECD: 05/27/[address]: Billy Shen COMP: 05/27/24 ENTERED: 05/27/[address]: ORDERED: CBC Auto Diff Test Result Flag Reference WBC 7.3 4.8-10.8 X10*3/uL RBC 5.26 4.20-5.50 X10*6/uL HGB 14.8 12.0-16.0 g/dl HCT 42.5 37.0-47.0 % MCV 80.8 80.0-98.0 fL MCH 28.1 27.0-33.0 pg MCHC 34.8 31.0-35.0 g/dl RDW 13.0 11.0-16.0 % PLT 260 160-400 X10*3/uL MPV 9.0 L 9.4-12.3 fL Neut Pct Auto 65.0 45-73 % ImGran Pct Auto 0.3 0.0-0.4 % Lymp Pct Auto 25.4 20-40 % [place] Pct Auto 5.9 2-11 % Eos Pct Auto 3.0 0-4 % Baso Pct Auto 0.4 0-2 % NRBC Pct Auto 0.0 0.0-0.2 /100WBC ANC Neut Abs # 4.7 2.0-8.3 x10*3/uL ImGran Abs Auto 0.02 0.00-0.03 X10*3/uL Lymph Abs Auto 1.9 1.2-4.9 X10*3/uL [place] Abs Auto 0.4 0.1-1.2 X10*3/uL Eos Abs Auto 0.2 0.0-0.4 X10*3/uL Baso Abs Auto 0.0 0.0-0.2 X10*3/uL NRBC A Name: Anne Felton Age/Sex: 24/F : 2000 Unit#: [id number] Attend Dr: Ry Walton DO Re05/27/24 Status: DEP ER Location: [facility] Disch: SPEC : [id number] LEONARDO: 05/27/24 STATUS: COMP REQ : [id number] RECD: 05/27/24-[address]: Billy Shen COMP: 05/27/24-1311 ENTERED: 05/27/24-[address]: ORDERED: CMP, MG, Lip, HCG Quant Test Result Flag Reference Sodium 141 135-145 mmol/L Potassium 4.1 3.3-5.1 mmol/L CL 111 H 96-108 mmol/L CO2 25 22-29 mmol/L Gap 9 L 12-20 BUN 8 L 9-16 mg/dL Creat 0.83 0.5-1.4 mg/dL Estimated CrCl 91.9 Provided height and weight: 167.64 cm, 56.699 kg. eGFR (calculated from the MDRD study equation) and eCrCl (calculated from the Cockcroft-Gault equation) are based on different parameters and may not yield comparable results. If eCrCl result is absurd, please check patient's height/weight. eGFR > 60 Chronic Kidney Disease: Estimated GFR < 60 mL/min/1.73m2 Severe Kidney Disease: Estimated GFR < 15 mL/min/1.73m2 Glucose, Random 88 60-115 mg/dL CA 9.5 8.4-10.2 mg/dL Magnesium 1.9 1.6-2.6 mg/dL Total Bili 1.0 0.0-1.0 mg/dL AST (GOT) 16 5-31 U/L ALT (GPT) 16 0-31 U/L Protein, Total 7.1 6.5-8.0 g/dL Alb 4.2 3.5-5.0 g/dL Alk Phos 62 39-117 U/L Lipase 22 8-78 U/L HCG Quant < 2 mIU/mL Coding Level of Care Code Est Pt Prev Care [id number]([id number]) Diagnoses Annual visit for general adult medical examination with abnormal findings Z00.01 Depression with anxiety F41.8 ADHD (attention deficit hyperactivity disorder), inattentive type F90.0 Vitamin D deficiency E55.9 Mild intermittent asthma J45.20 Encounter for counseling regarding advance directives Z71.89 Refused influenza vaccine Z28.21 Refused pneumococcal vaccination Z28.21 Additional Codes Vital Signs *Quality* - Advance Care Planning discussion: Completed/Scanned ([id number]) Vital Signs *Quality* - Time spent: 16-45 minutes ([id number]) CINDY-7 Assessment Billing - CINDY-7 Assessment Tool: CINDY-7 Assessment 69941 ([id number]) PHQ-9 - 17606 - PHQ-9 Billing: Yes ([id number]) Assessment & Plan Assessment & Plan (1) Annual visit for general adult medical examination with abnormal findings: Code(s): Z00.01 - Encounter for general adult medical examination with abnormal findings Plan: Will check appropriate labs. Recommended dental visit every 6 months and continue with regular eye exams, at least every 2 years. Take adequate calcium in diet and vitamin-D 3 at 2000 IU per cap once a day, in addition to weight- bearing exercises to help maintain good muscle tone and weight control. Instructed to do self-breast exam, and recommended to get yearly mammogram, starting at age 40. Up-to-date with her cervical cancer screening, has Mirena IUD. Patient declines getting vaccines at present time. (2) Depression with anxiety: Comment: Currently being [facility] sees Dr. Caesar Gaston Code(s): F41.8 - Other specified anxiety disorders Category: Medical Plan: Followed by Caesar Gaston, currently on fluoxetine 60 mg daily in the morning, hydroxyzine at bedtime and propranolol 40 mg once a day (3) ADHD (attention deficit hyperactivity disorder), inattentive type: Comment: Followed at was at [facility], sees Dr. Caesar Gaston Code(s): F90.0 - Attention-deficit hyperactivity disorder, predominantly inattentive type Category: Medical Plan: Patient psychiatrist still waiting for documentation regarding ADHD testing (4) Vitamin D deficiency: Code(s): E55.9 - Vitamin D deficiency, unspecified Category: Medical Plan: Will check vitamin-D level (5) Mild intermittent asthma: Comment: Goes to [facility] sees Dr. Ken Lewis Code(s): J45.20 - Mild intermittent asthma, uncomplicated Category: Medical Plan: Controlled on Symbicort, patient only using 1 inhalation at bedtime and we needing to use her albuterol inhaler. Recommended to get flu vaccine COVID booster and pneumococcal vaccination but patient declined getting any vaccines at present time (6) Encounter for counseling regarding advance directives: Code(s): Z71.89 - Other specified counseling Plan: Initiated the conversation about Advanced Directives. Advanced Directives help patients prepare for current and future decisions about their medical treatment and place of care. Discussed with patient that it is a process where a patients current condition and prognosis are reviewed, their wishes for information regarding their illness are elicited, and likely medical dilemmas are presented and options discussed. Health care Proxy form completed . The form can be amended as needed, reviewed yearly and make changes as needed (7) Refused influenza vaccine: Code(s): Z28.21 - Immunization not carried out because of patient refusal Category: Medical Plan: Patient refusing flu shot today (8) Refused pneumococcal vaccination: Code(s): Z28.21 - Immunization not carried out because of patient refusal Category: Medical Plan: Declined pneumococcal vaccination Orders: Orders Vitamin D 25-OH Total 07/06/24 E55.9 - Vitamin D deficiency, unspecified, F41.8 - Other specified anxiety disorders, F90.0 - Attention-deficit hyperactivity disorder, predominantly inattentive type, J45.20 - Mild intermittent asthma, uncomplicated, Z00.01 - Encounter for general adult medical examination with abnormal findings, Z71.89 - Other specified counseling Lipid Panel 07/06/24 E55.9 - Vitamin D deficiency, unspecified, F41.8 - Other specified anxiety disorders, F90.0 - Attention-deficit hyperactivity disorder, predominantly inattentive type, J45.20 - Mild intermittent asthma, uncomplicated, Z00.01 - Encounter for general adult medical examination with abnormal findings, Z71.89 - Other specified counseling
== END 2024-07-06 10:13 | disposition home or self-care (01) ==
PROVIDERS: PCP Internal Medicine; Visit Provider Internal Medicine
DX: Z00.01 Encounter for general adult medical examination with abnormal findings (principal); F41.8 Other specified anxiety disorders; F90.0 Attention-deficit hyperactivity disorder, predominantly inattentive type; E55.9 Vitamin D deficiency, unspecified; J45.20 Mild intermittent asthma, uncomplicated; Z71.89 Other specified counseling; Z28.21 Immunization not carried out because of patient refusal; Z00.00 Encounter for general adult medical examination without abnormal findings

== ENCOUNTER → 2024-07-06 08:56 | Outpatient (BNVA) | payer OTHER, SELFPAY | PROVIDERS: PCP Internal Medicine; Visit Provider Internal Medicine | DX: Z00.01 Encounter for general adult medical examination with abnormal findings (principal); F41.8 Other specified anxiety disorders; F90.0 Attention-deficit hyperactivity disorder, predominantly inattentive type; E55.9 Vitamin D deficiency, unspecified; J45.20 Mild intermittent asthma, uncomplicated; Z71.89 Other specified counseling | CPT/HCPCS: 96127; 99395; 99497 ==